=== PATIENT | female | born 1935 | race Caucasian/White ===

== ENCOUNTER 2024-03-06 14:54 | Inpatient (IN) | payer MEDICARE, SELFPAY ==
[2024-03-06] VITALS (8 sets, daily range): BP systolic 105–148; BP diastolic 59–89
--- NOTE | 2024-03-06 13:14 | ED.GENMED ---
History of Present Illness
General
Chief Complaint: Cardiac Symptoms
Source: patient, records and family
Exam Limitations: none
Time Seen by Provider: 03/06/24 12:48
Nursing documentation reviewed up to this point in time: agreed with
Travel History
Have you had any contact with someone who has COVID-19?: No
Do you have any symptoms of coronavirus? Fever > 100 degrees, chills, cough, shortness of breath, sore throat, loss of taste or smell, muscle aches, or headache?: No
History of Present Illness
History of Present Illness:
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 Patient
was 25 to 30% and it was up to 50% on her last echo. Patient does admit to fatigue over the past couple weeks. Patient is chronically short of breath and has chronic swelling in her ankles. Patient denies chest pain. Patient denies any GI or
symptoms. Patient denies chest pain. Patient denies any orthopnea. Patient does have a history of nonobstructive coronary artery disease and has had an NJ in the past.
Past History
Past History
ED Past Medical History: Arrthythmia, CHF, HTN, NJ and Other (Hemorrhoids, frequent urination, arthritis, impaired vision, cardiomyopathy, out of hospital cardiac arrest)
ED Past Surgical History: Cardiac (Cardiac defibrillator placed status post cardiac arrest) and Gynecological (Hysterectomy)
Social History
Tobacco: Non-smoker
Alcohol: Occasional
Drug: None
Personal:
Living: with family
Employment: Retired
Review of Systems
Review of Systems
All Other Systems: ROS reviewed and negative except as documented in HPI and ROS
Constitutional: Reports fatigue; Denies fever or chills
EENT: Reports no symptoms
Respiratory: Reports trouble breathing; Denies cough
Cardiac: Denies chest pain, diaphoresis or palpitations
ABD/GI: Reports no symptoms
: Reports no symptoms
Musculoskeletal: Reports edema
Skin: Reports no symptoms
Neurological: Reports no symptoms
Hematologic/Lymphatic: Reports no symptoms
Phy Exam
Physical Exam
Physical Exam:
Physical Exam
General: No apparent distress, alert and appropriate, well nourished, well hydrated
HENT: Normocephalic, supple with no lymphadenopathy, no thyromegaly
Eyes: Clear sclera, conjuctiva without injection
Heart: irregular rhythm and normal rate. No S3, S4. No murmur. No NVD
Lungs: No respiratory distress, no stridor, lung sounds clear and equal bilaterally
Abdomen: Soft, nontender, no organomegaly, BS good
Neuro: Alert and oriented x 3, CN II - XII intact, no motor focality
Skin: no rash
Psychiatric: well kept. interactive and cooperative
Extremities: No cyanosis, tenderness. +1-2 pitting edema bilaterally of the ankles, feet and lower legs
Course
Orders/Labs/Results
Orders:
Orders
03/06/24 12:10
ECG [Electrocardiogram (*1)] Urgent
Reason for Study: Atrial Fibrillation
03/06/24 12:11
EKG- Treatment ONCE
03/06/24 13:06
Complete Blood Count/With Diff Urgent
Comprehensive Metabolic Panel Urgent
NT-proBNP Urgent
Prothrombin Time Urgent
TSH Reflex To Free T4 Urgent
Troponin I Urgent
Vital Signs
Initial and Last Documented VS:
Initial Vital Signs
Temp Pulse Resp BP Pulse Ox
98.1 F 93 18 148/89 95
03/06/24 12:06 03/06/24 12:06 03/06/24 12:06 03/06/24 12:06 03/06/24 12:06
Last Documented Vital Signs
Temp Pulse Resp BP Pulse Ox
98.1 F 93 18 148/89 95
03/06/24 12:06 03/06/24 12:06 03/06/24 12:06 03/06/24 12:06 03/06/24 12:06
*Pulse Oximetry
Patient hypoxic: no
*EKG
Interpreted by ED Provider?: Yes
EKG Intrepretation Date: 03/06/24
EKG Intrepretation Time: 13:19
Interpretation: abnormal
Comparison EKG: changes noted
Heart Rate: 81
Rate: normal
Rhythm: a-fib, PVC's and av sequential
[place]: left axis deviation
Interval: normal QT interval
QRS Pattern: left vent hypertrophy
Ischemia: non-specific ST changes
*Plant Engineering Manager Interpretation
Rate: normal
Interpretation: abnormal
Heart Rate: 80
Rhythm: a-fib and av sequential
*Critical Care Note
Total Time (30-74mins, 75-104mins- exclusive of procedures): Not Applicable
ED Attending Note
-
Portions of this chart may have been created with voice recognition software.� Occasional wrong word or��sound alike� substitutions may have occurred due to the inherent limitations of voice recognition software.
Discharge Plan
Departure
Patient Disposition: Admit
Date of Disposition: 03/06/24
Time of Disposition: 13:20
Admit to: Telemetry
Admit to doctor: Hospitalist
Presentation/result/management discussed w/ accepting MD/DO: Cardiology
Patient with high blood pressure during this ER visit?: Yes
Condition: Fair
Covid-19: Not Applicable
Discharge Problem:
Acute congestive heart failure, Atrial fibrillation with controlled ventricular rate
Prescriptions:
No Action
atenolol 50 MG tablet
75 mg PO HS
cholecalciferol (vitamin D3) 1,000 UNITS tablet
1,000 units PO DAILY@1700
biotin 10,000 MCG capsule
10,000 mcg PO HS
losartan 25 MG tablet
25 mg PO HS
doxycycline hyclate 100 MG capsule
100 mg PO Q12 Qty: 3 0RF
furosemide 20 MG tablet
20 mg PO DAILY Qty: 30 0RF
fluticasone propionate 1 SPRAY spray,suspension
2 spray intranasal DAILY Qty: 1 0RF
prednisone 10 MG tablet
10 mg PO .TAPER Qty: 30 0RF
Rx Instructions:
Take 40mg daily x3days, 30mg daily x3days,
20mg daily x3days, 10mg daily x3days.
warfarin [Jantoven] 5 MG tablet
7.5 mg PO SUTUTHSA Qty: 0 0RF
Rx Instructions:
please hold until INR is taken Monday 12/11
warfarin [Jantoven] 5 MG tablet
5 mg PO MOWEFR Qty: 0 0RF
Rx Instructions:
please hold until INR is taken Monday 12/11
Discharge Date and Time
Print Language: INDONESIAN
[2024-03-06 13:31] LABS: % Basophils 0.8 % (0-2); % Eosinophils 0.2 % (0-6); % Immature Granulocytes 0.2 % (0-0.5); % Lymphocytes 23.4 % (20.5-51.1); % Monocytes 11.4 % (1.7-9.3); Absolute Lymphocytes 1.2 10^3/uL (1.2-3.4); Absolute Monocytes 0.6 10^3/uL (0.1-0.6); Absolute Neutrophils 3.2 10^3/uL (1.4-6.5); Hematocrit 42.3 % (37.0-47.0); Hemoglobin 14.6 g/dL (12.0-16.0); Mean Corp Hgb Conc. 34.5 g/dL (33.0-37.0); Mean Corpuscular Hgb 30.2 pg (27.0-31.0); Mean Corpuscular Volume 87.6 fL (81.0-99.0); Mean Platelet Volume 10.3 fL (7.4-10.4); Nucleated Red Blood Cells % 0 %; Platelet Count 177 10^3/uL (130-400); Red Blood Cell Count 4.83 10^6/uL (4.20-5.40)
[2024-03-06 13:56] LABS: INR 2.11; PT 23.8 Sec (11.4-14.6)
[2024-03-06 13:57] LABS: NT-proBNP 7620 pg/ml; Troponin I < 0.012 ng/ml
[2024-03-06 13:58] LABS: ALT (SGPT) 20 U/L (0-35); AST (SGOT) 36 U/L (14-36); Albumin 4.2 g/dl (3.5-5.0); Alkaline Phosphatase 98 U/L (38-126); Blood Urea Nitrogen 23 mg/dl (7-17); Calcium 9.2 mg/dl (8.4-10.2); Carbon Dioxide 29 mmol/L (22-30); Chloride 105 mmol/L (98-107); Glucose 89 mg/dl (70-99); Potassium 3.6 mmol/L (3.5-5.1); Sodium 142 mmol/L (135-145); Total Bilirubin 1.1 mg/dl (0.2-1.3); Total Protein 6.5 g/dl (6.3-8.2); eGFR > 60.00
--- NOTE | 2024-03-06 14:13 | HPS.HSE ---
Family Physician
-
Family Physician: NO INTERVIEW UNKNOWN
Chief Complaint
-
feeling tired
History of Present Illness
88-year-old female with extensive past medical cardiac history who is presenting from cardiology office where was found that she had low ejection fraction. Patient states of complaining and feeling fatigued for the past couple weeks. States she
walks couple of blocks and started feeling weak and has to slow down. Denies chest pain. States of chronic shortness of breath. 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 States of losing weight which she
seems multifactorial due to not appetizing food at long term. Denies any orthopnea or PND. Denies any fevers or chills. Otherwise patient is in pleasant mood and states she feels fine. Patient was seen by Dr. Baez and was recommended
come into the hospital and echocardiogram as outpatient with reduction in ejection fraction and valvular insufficiency. Also patient has 3 months of battery life left on ICD battery needs to be probably exchanged and cardiac cath and TAMIE/CV.
Medical History
Past Medical History
Past Medical History: Reports Other
Additional Past Medical History:
Persistent atrial fibrillation
Chronic HFrEF
Nonrheumatic mitral valve insufficiency
Hyperlipidemia
Antiphospholipid antibody positive
History of PE
Hyperlipidemia
Cardiac status post ICD
Ventricular tachycardia status post ICD
Past Surgical History: Reports Cardiac (ICD )
Social History
Tobacco: Non-smoker
Alcohol: Occasional (mimosa x 1 qweekly)
Drug: None
Living: Assisted Living
Family History
Family History: Not pertinent
Allergies / Home Medications
Allergies reflects when Allergies were last updated in [employer].
Home Medications with original date entered in [employer]
Allergy/Medication List:
Allergies
Allergy/AdvReac Type Severity Reaction Status Date / Time
carvedilol [From Coreg] Allergy mental Verified 12/04/17 17:47
changes/memory
problems/fogginess;
PT DENIES
codeine Allergy lost Verified 12/04/17 17:47
hearing x
3 days
erythromycin base Allergy passed out Verified 12/04/17 17:47
metoprolol Allergy couldnt Verified 12/04/17 17:47
remember
her name;
PT DENIES
rosuvastatin Allergy Unknown Verified 12/04/17 17:47
Home Medications
atenolol 50 mg tablet 50 mg PO DAILY 01/27/15
cholecalciferol (vitamin D3) 25 mcg (1,000 unit) tablet 1,000 units PO DAILY 01/27/15
biotin 10,000 mcg capsule 10,000 mcg PO DAILY 12/04/17
losartan 25 mg tablet 25 mg PO DAILY 12/04/17
amiodarone 100 mg tablet 50 mg PO DAILY 03/06/24
atorvastatin 10 mg tablet (Lipitor) 10 mg PO DAILY 03/06/24
furosemide 20 mg tablet 80 mg PO DAILY 03/06/24
vitamin B complex 1 tab PO DAILY 03/06/24
warfarin 5 mg tablet (Jantoven) 2.5 mg PO QPM 03/06/24
Review of Systems
-
History Source: Patient and Family
A 12 point ROS was completed and negative except as noted: Yes
Physical Exam
Vital Signs
Vital Signs
Temp Pulse Resp BP Pulse Ox
98.1 F 93 18 148/89 95
03/06/24 12:06 03/06/24 12:06 03/06/24 12:06 03/06/24 12:06 03/06/24 12:06
Physical Exam
General: Well Developed, Well Nourished and No Apparent Distress
HEENT: NormoCephalic, Moist mucous membranes and Atraumatic
Respiratory: Clear
Cardiac: S1/S2 and Murmur; No Rub
GI: Soft, Non Tender, Non Distended and Normal Bowel Sounds; No Organomegaly
Rectal: Deferred by Provider
Musculoskeletal: No Clubbing, No Cyanosis, Edema, Left Lower Extremity and Edema, Right Lower Extremity
Skin: No Rash
Neuro: Awake, AO x 3, No Motor Deficits and Nonfocal/grossly intact
Psych: Calm
Laboratory Results
-
03/06/24 13:25
03/06/24 13:25
Laboratory Results
Total Bilirubin 1.1 mg/dl (0.2-1.3) 03/06/24 13:25
AST 36 U/L (14-36) 03/06/24 13:25
ALT 20 U/L (0-35) 03/06/24 13:25
Alkaline Phosphatase 98 U/L (38-126) 03/06/24 13:25
Troponin I < 0.012 ng/ml 03/06/24 13:25
Impression/Plan
-
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
#Valvular disease with moderate to severe mitral regurgitation and moderate tricuspid regurgitation
Start patient on 40 mg of IV Lasix
Strict I's and O's with daily weights.
Monitor creatinine aggressive diuresis
Start patient on goal-directed medical therapy per cardiology at sensitive to multiple medications
May need to hold Coumadin if plan for cardiac catheterization.
Cardiology consultation
#Ventricular tachycardia status post ICD implantation
Currently on low-dose of amiodarone 50 mg p.o. daily
Monitor on telemetry. Monitor electrolytes
ICD interrogation ?
Per patient battery on the left for 3 months-? Exchange per cardiology
#Paroxysmal atrial fibrillation now persistent
#Chronic coagulopathy with Coumadin
INR pending
Continue amiodarone
TSH pending
Consider switching atenolol to carvedilol
Hyperlipidemia
Continue low-dose Lipitor
Check lipids in am
History of PE
History of DVT
Continue Coumadin
DVT ppx-coumadin/scds
d/w with son at bedside in details
Full code
[2024-03-06 14:30] LABS: TSH Reflex To Free T4 < 0.02 uIU/ml (0.47-4.68)
--- NOTE | 2024-03-06 15:08 | W.PN.CARDCBS ---
Addendum entered and electronically signed by Jeannine Tovar MD 03/06/24 16:28:
I saw and examined the patient.
The Workforce Management Consultant's note was reviewed and I agree with the note.
Comment: I saw the patient in the office today and given that she lives quite a ways away she also had echocardiogram which showed significant decline in ejection fraction. She was accompanied by her son and ultimately decision was made for her to
be admitted.Please refer to office note.
She is quite complicated. She is volume overloaded. Today in the office she remains in persistent atrial fibrillation. Last office visit A-fib recurrence was noted and she was asymptomatic and wished to be conservative. Atrial fibrillation has been
persistent for approximately 16 months and she has been on low-dose amiodarone (Dual purpose) and warfarin.
She underwent echocardiogram today and ejection fraction which had previously recovered and had been stable 45 to 55% over the recent years declined to 25 to 32% with concomitant moderate to severe mitral regurgitation (previously moderate). In
addition cannot be sure that she does not have New apical and distal septal hypokinesis on echo. She does have history of nonobstructive coronary disease with 40% LAD disease in 2007/2008.
She is volume overloaded. She has not been on usual guideline directed medical therapy given her ejection fraction had recovered and she is intolerant to many medications. I discussed this all at length with her son and the patient. After we
discussed at great length treatment and evaluation options Plan at this time:
-Would maximize heart failure with reduced ejection fraction status.
-Given decline in ejection fraction and possible wall motion abnormality with prior nonobstructive coronary disease many years ago patient is agreeable to cardiac catheterization. Await INR less than 1.4 or when interventional cardiology
feels comfortable. Would bridge with heparin. Risks and benefits discussed with the patient and her son.
-Plan for TAMIE cardioversion then this hospital stay. Try to restore sinus rhythm. Anticoagulation should continue. Increase amiodarone from 100 mg daily to 200 mg twice daily. Check thyroid function test.
-Mitral regurgitation which was moderate is now moderate to severe. Reassess during TAMIE this may be in part related to atrial fibrillation decompensated heart failure.
-Likely should undergo biventricular ICD generator change during this hospital stay given history of ventricular tachycardia, history of sudden cardiac and 3 months of battery life.
-She at this time is willing to undergo guideline directed medical therapy. In the past she absolutely did not tolerate Toprol-XL. She is willing to retry carvedilol 3.[address] of atenolol.
-She is willing to try Entresto 24/[address] daily in place of losartan. (Will need to check into cost)
-She is willing to start Aldactone 25 mg daily with follow-up labs.
-Diuresis with IV Lasix
-Follow input/output/daily weights.
-Heart failure education heart failure nutrition education
-Check thyroid function testing given history of thyroid disease.
-Curbside hematology to ask with her antiphospholipid lipid antibody syndrome and history of DVT/PE in the distant past as to whether this patient may proceed to switch from Coumadin to Eliquis. Her INR s lately have been fluctuating.
-Reassess lipids
-Blood pressure has been stable
-No further significant ventricular tachycardia on amiodarone. Amiodarone is being used for dual purpose.��
Original Note:
Today's Communication / Plan
-
-Will diurese with Lasix 40 mg IV BID.
-Patient agreeable to transition from outpatient dose of atenolol to Coreg 3.125 mg BID. Patient was previously intolerant to Toprol XL.
-Patient agreeable to transition from outpatient dose of losartan to Entresto 24/26 mg BID.
-Patient agreeable to start spironolactone 25 mg daily. Will follow BMP.
-Patient is agreeable to cardiac catheterization. Last cardiac cath was in 2007 and patient had a 40% prox LAD lesion at that time.
-INR is 2.11 in the ER. Will hold warfarin dose on 03/06/24. Will tentatively add to cath schedule for 03/07/24.
-Pending results of cath will attempt to restore to SR this admission with TAMIE/CV. Patient has been in persistent Afib for 16 months.
-Will increase amiodarone to 200 mg daily.
-Will ask Heme/Onc to see patient and help determine if patient can transition from warfarin to Eliquis. Patient has been on warfarin since PE in 2014. Patient saw Heme/Onc in 2014 and was positive for anticardiolipin IgM antibody. Consult placed
and TT to Heme attending on 03/06/24.
-Will start Heparin gtt once INR is less than 2.
-[employer] ICD is in place and device check in office 03/06/24 indicates 3 months of battery life. Patient will need generator change prior to discharge.
-Likely schedule of events is cath, then generator change then TAMIE/CV. Will diurese in the meantime.
Impression / Plan
-
PCP: Unknown
Cardiology: Dr. Jeannine Tovar
Heme/Onc: Dr. Starr
Impression:
Acute on chronic HFrEF
Recurrent cardiomyopathy, EF 32% by Rachel's method and 25-30% visually on echo 03/06/24
EF previously as low as 30% by echo 10/17/19 and then improved to 50% by echo 12/16/22
Persistent Afib
Chronic amiodarone therapy
Chronic warfarin OAC managed by [facility]
Nonobstructive CAD including 40% proximal LAD lesion by cath 07/07/08
h/o cardiac arrest 02/2009
s/p [employer] ICD, s/p generator change 05/30/13
h/o NSVT
Anti-cardiolipin antibody syndrome
positive for anti-cardiolipin antibody IgM
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
Echo 02/2009: EF 35-40%
Echo 05/23/13: EF 40%
Echo 01/28/15: EF 40-45%
Echo 06/02/15: EF 55-60%
Echo 11/23/15: EF 55-60%
Echo 03/2017: EF 50-55%, mod MR, PASP 35-40mmHg
Echo 01/01/18: EF 45%
Echo 10/17/19: EF 30-35% with global hypokinesis
Echo 12/14/20: EF 50-55%
Echo 12/16/22: EF 50%, mod MR, mod TR with PAP 52 mmHg
Echo 03/06/24: EF 25 to 30% visually, 32% by Rachel's method, endocardial definition is limited, but in some views apex, distal septum appear hypokinetic, mild concentric LVH, moderate to severe MR, no aortic regurgitation, moderate TR with PAP 46
mmHg
Plan:
-Patient was seen for a regularly scheduled echo and office visit today and was noted to have CM and acute HF, she was referred to [facility] and cardiology is now consulted. Patient has a h/o CM as far back as 2007, she had cardiac cath at that time and
she had a 40% proximal LAD lesion, but no other significantly obstructive CAD. Patient then had cardiac arrest in 02/2009 and had an ICD placed at that time. Patient found to have Afib on device check and also has a h/o ICD shocks for unclear
reasons. She is chronically on amiodarone 50 mg daily and warfarin. Patient has been taking warfarin since the PE in [address] Starr at that time and tested positive for anticardiolipin IgM antibody. Patient has had EF up and down since
then. Patient has not wanted to switch from atenolol to Coreg or Toprol XL in the past. Patient has been agreeable to losartan though. Patient appeared to be in acute HF in the office today and on echo her EF was down to 25% visually. Patient was
referred to [facility].
-Patient with acute HFrEF. EF 25% by echo 03/06/24. pro-BNP 7620.
-Will diurese with Lasix 40 mg IV BID.
-Patient agreeable to transition from outpatient dose of atenolol to Coreg 3.125 mg BID. Patient was previously intolerant to Toprol XL.
-Patient agreeable to transition from outpatient dose of losartan to Entresto 24/26 mg BID.
-Patient agreeable to start spironolactone 25 mg daily. Will follow BMP.
-TSH low at less than 0.02, but free T4 is normal at 2.14.
-Patient is agreeable to cardiac catheterization. Last cardiac cath was in 2007 and patient had a 40% prox LAD lesion at that time.
-INR is 2.11 in the ER. Will hold warfarin dose on 03/06/24. Will tentatively add to cath schedule for 03/07/24.
-Pending results of cath will attempt to restore to SR this admission with TAMIE/CV. Patient has been in persistent Afib for 16 months.
-Will increase amiodarone to 200 mg daily.
-Will ask Heme/Onc to see patient and help determine if patient can transition from warfarin to Eliquis. Patient has been on warfarin since PE in 2014. Patient saw Heme/Onc in 2014 and was positive for anticardiolipin IgM antibody. Consult placed
and TT to Heme attending on 03/06/24.
-Will start Heparin gtt once INR is less than 2.
-[employer] ICD is in place and device check in office 03/06/24 indicates 3 months of battery life. Patient will need generator change prior to discharge.
-Likely schedule of events is cath, then generator change then TAMIE/CV. Will diurese in the meantime.
Progress Note - [employer]
Subjective
Date of Service: March 06, 2024
She denies SOB laying in bed
Objective
Labs:
03/06/24 13:25
03/06/24 13:25
Labs
Hgb 14.6 g/dL (12.0-16.0) 03/06/24 13:25
Hct 42.3 % (37.0-47.0) 03/06/24 13:25
Plt Count 177 10^3/uL (130-400) 03/06/24 13:25
PT 23.8 Sec (11.4-14.6) H 03/06/24 13:25
INR 2.11 03/06/24 13:25
Sodium 142 mmol/L (135-145) 03/06/24 13:25
Potassium 3.6 mmol/L (3.5-5.1) 03/06/24 13:25
BUN 23 mg/dl (7-17) H 03/06/24 13:25
Creatinine 0.9 mg/dL (0.6-1.0) 03/06/24 13:25
Glucose 89 mg/dl (70-99) 03/06/24 13:25
Troponins
03/06/24
13:25
Troponin I < 0.012
Vital Signs and I&O:
Vital Signs
Temp Pulse Resp BP Pulse Ox
98.1 F 93 18 148/89 95
03/06/24 12:06 03/06/24 12:06 03/06/24 12:06 03/06/24 12:06 03/06/24 12:06
Vital Signs
Temp Pulse Resp BP Pulse Ox
98.1 F 93 18 148/89 95
03/06/24 12:06 03/06/24 12:06 03/06/24 12:06 03/06/24 12:06 03/06/24 12:06
Physical Exam
Physical Exam
GEN: No distress, awake, alert and oriented x3
HEENT: EOMI, MMM
LUNGS:CTA B/L without wheeze or rales
CV: Irreg irreg, 3/6 BSM
ABD: soft, BS+, NT, ND
EXT: +1 B/L LE edema
NEURO: Gross non-focal
SKIN: Warm, dry and pink. No rash
[2024-03-06 15:15] LABS: Free T4 2.14 ng/dl (0.78-2.19)
[2024-03-06] MEDS: PACERONE 100 MG PO (17:12)
[2024-03-06] MEDS: LASIX 40 MG IV (17:12)
[2024-03-06] MEDS: ENTRESTO 24 MG/26 MG 1 TAB PO (19:55)
[2024-03-06] MEDS: COREG 3.125 MG PO (19:55)
[2024-03-07 03:02] VITALS: BP 107/57
[2024-03-07 06:14] LABS: PT 27.3 Sec (11.4-14.6)
[2024-03-07 06:33] LABS: Blood Urea Nitrogen 22 mg/dl (7-17); Calcium 8.5 mg/dl (8.4-10.2); Carbon Dioxide 31 mmol/L (22-30); Chloride 105 mmol/L (98-107); Glucose 86 mg/dl (70-99); Potassium 3.4 mmol/L (3.5-5.1); Sodium 142 mmol/L (135-145); eGFR 54.53
[2024-03-07 07:55] VITALS: BP 117/64
[2024-03-07] MEDS: VITAMIN D3 (cholecalciferol) 25 MCG PO (08:18)
[2024-03-07] MEDS: LIPITOR 10 MG PO (08:18)
[2024-03-07] MEDS: ENTRESTO 24 MG/26 MG 1 TAB PO (08:18)
[2024-03-07] MEDS: COREG 3.125 MG PO (08:19)
[2024-03-07] MEDS: PACERONE 200 MG PO (08:19)
[2024-03-07] MEDS: B COMPLEX w/VITAMIN C 1 CAPLET PO (08:19)
[2024-03-07] MEDS: ALDACTONE 25 MG PO (08:19)
[2024-03-07] MEDS: LASIX 40 MG IV ×2 (08:20→16:53)
[2024-03-07] MEDS: KCL 20 MEQ PO ×2 (08:25→16:54)
--- NOTE | 2024-03-07 10:43 | CON.ONC ---
Impression
Impression
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
Previous DVT pulmonary embolus 2014
Decompensated congestive heart failure
Plan
Plan
Would be reluctant to recommend alternate to warfarin with a history of persistent antiphospholipid antibody
IgM titers were in the intermediate level at 50 on the second evaluation 12 weeks after the first positive
Continue with goal INR greater than 2.0
Patient History
History of Present Illness
88-year-old female with extensive past medical cardiac history who is presenting from cardiology office where was found that she had low ejection fraction. Patient states of complaining and feeling fatigued for the past couple weeks. States she
walks couple of blocks and started feeling weak and has to slow down. Denies chest pain. States of chronic shortness of breath. Denies any orthopnea,PND, fevers or chills. Otherwise patient is in pleasant mood and states she feels fine. Patient
was seen by Dr. Baez and was recommended come into the hospital and echocardiogram as outpatient with reduction in ejection fraction and valvular insufficiency. Also patient has 3 months of battery life left on ICD battery needs to be
probably exchanged and cardiac cath and TAMIE/CV.
Past-Medical/Surgical History
Past Medical History
Persistent atrial fibrillation
Chronic HFrEF
Nonrheumatic mitral valve insufficiency
Hyperlipidemia
Antiphospholipid antibody positive
History of PE
Hyperlipidemia
Cardiac status post ICD
Ventricular tachycardia status post ICD
Past Surgical History
Cardiac (ICD )
Social History
Tobacco: Non-smoker
Alcohol: Occasional (mimosa x 1 qweekly)
Drug: None
Living: Assisted Living
Family History
Family History: Not pertinent
Patient Medication
�Medication �Instructions �Recorded �Confirmed �Last Taken �Type
atenolol 50 mg tablet 50 mg PO DAILY Blood Pressure 01/27/15 03/06/24 03/05/24 History
cholecalciferol (vitamin D3) 25 1,000 units PO DAILY Supplement 01/27/15 03/06/24 03/05/24 History
mcg (1,000 unit) tablet
biotin 10,000 mcg capsule 10,000 mcg PO DAILY Supplement 12/04/17 03/06/24 03/05/24 History
losartan 25 mg tablet 25 mg PO DAILY Blood Pressure 12/04/17 03/06/24 03/05/24 History
amiodarone 100 mg tablet 50 mg PO DAILY Arrhythmia 03/06/24 03/06/24 03/05/24 History
atorvastatin 10 mg tablet (Lipitor) 10 mg PO DAILY High Cholesterol 03/06/24 03/06/24 03/05/24 History
furosemide 20 mg tablet 80 mg PO DAILY Fluid 03/06/24 03/06/24 03/05/24 History
Retention/Swelling
vitamin B complex 1 tab PO DAILY Supplement 03/06/24 03/06/24 Unknown History
warfarin 5 mg tablet (Jantoven) 2.5 mg PO QPM Blood Clot 03/06/24 03/06/24 03/05/24 History
Prevention/Tx
Active Medications
Generic Name Dose Route Start Last Admin
Trade Name Freq PRN Reason Stop Dose Admin
Amiodarone HCl 200 mg 03/07/24 08:00 03/07/24 08:19
Amiodarone 200 Mg Tablet PO 04/04/24 07:59 200 mg
DAILY ZANDER Administration
Atorvastatin Calcium 10 mg 03/07/24 08:00 03/07/24 08:18
Atorvastatin (Lipitor) 10 Mg Tablet PO 04/04/24 07:59 10 mg
DAILY ZANDER Administration
Carvedilol 3.125 mg 03/06/24 20:00 03/07/24 08:19
Carvedilol 3.125 Mg Tablet PO 04/03/24 19:59 3.125 mg
BID ZANDER Administration
Cholecalciferol 25 mcg 03/07/24 08:00 03/07/24 08:18
Cholecalciferol (Vitamin D3) 25 Mcg Tablet (1,000 Units) PO 04/04/24 07:59 25 mcg
DAILY ZANDER Administration
Furosemide 40 mg 03/07/24 08:00 03/07/24 08:20
Furosemide 40 Mg (10 Mg/Ml) 4 Ml Vial IV 04/04/24 07:59 40 mg
BID AT 0800,1600 ZANDER Administration
Potassium Chloride 20 meq 03/07/24 16:00
Potassium Chloride 20 Meq Extended Release Tablet PO 04/04/24 15:59
0800,1600 ZANDER
Sacubitril/Valsartan 1 tab 03/06/24 20:00 03/07/24 08:18
Sacubitril 24 Mg/Valsartan 26 Mg (Entresto) Tab PO 04/03/24 19:59 1 tab
BID ZANDER Administration
Sodium Chloride 0 flush 03/06/24 17:00
Sodium Chloride 0.9% (Flush) Syringe IV 04/03/24 16:59
PER PROTOCOL ZANDER
Spironolactone 25 mg 03/07/24 08:00 03/07/24 08:19
Spironolactone 25 Mg Tablet PO 04/04/24 07:59 25 mg
DAILY ZANDER Administration
Vitamin B Complex/Vitamin C 1 caplet 03/07/24 08:00 03/07/24 08:19
Vitamin B Complex With Vitamin C Caplet PO 04/04/24 07:59 1 caplet
DAILY ZANDER Administration
Review of Systems
-
12 point review of systems fails to elicit additional complaints other than those reviewed in the HPI.
Physical Exam
-
Physical Exam
General: Well Developed, Well Nourished and No Apparent Distress
HEENT: NormoCephalic, Moist mucous membranes and Atraumatic
Respiratory: Clear
Cardiac: S1/S2 and Murmur; No Rub
GI: Soft, Non Tender, Non Distended and Normal Bowel Sounds; No Organomegaly
Rectal: Deferred by Provider
Musculoskeletal: No Clubbing, No Cyanosis, Edema, Left Lower Extremity and Edema, Right Lower Extremity
Skin: No Rash
Neuro: Awake, AO x 3, No Motor Deficits and Nonfocal/grossly intact
Psych: Calm
Labs
Lab Results
WBC 5.0 10^3/uL (4.8-10.8) 03/06/24 13:25
RBC 4.83 10^6/uL (4.20-5.40) 03/06/24 13:25
Hgb 14.6 g/dL (12.0-16.0) 03/06/24 13:25
Hct 42.3 % (37.0-47.0) 03/06/24 13:25
MCV 87.6 fL (81.0-99.0) 03/06/24 13:25
MCH 30.2 pg (27.0-31.0) 03/06/24 13:25
MCHC 34.5 g/dL (33.0-37.0) 03/06/24 13:25
RDW 15.0 % (11.5-14.5) H 03/06/24 13:25
Plt Count 177 10^3/uL (130-400) 03/06/24 13:25
MPV 10.3 fL (7.4-10.4) 03/06/24 13:25
Abs Immat Gran (auto) 0.0 10^3/uL (0-0.05) 03/06/24 13:25
Absolute Neuts (auto) 3.2 10^3/uL (1.4-6.5) 03/06/24 13:25
Absolute Lymphs (auto) 1.2 10^3/uL (1.2-3.4) 03/06/24 13:25
Absolute Monos (auto) 0.6 10^3/uL (0.1-0.6) 03/06/24 13:25
Absolute Eos (auto) 0.0 10^3/uL (0-0.7) 03/06/24 13:25
Absolute Basos (auto) 0.0 10^3/uL (0-0.2) 03/06/24 13:25
Immature Gran % 0.2 % (0-0.5) 03/06/24 13:25
Neutrophils % 64.0 % (42.2-75.2) 03/06/24 13:25
Lymphocytes % 23.4 % (20.5-51.1) 03/06/24 13:25
Monocytes % 11.4 % (1.7-9.3) H 03/06/24 13:25
Eosinophils % 0.2 % (0-6) 03/06/24 13:25
Basophils % 0.8 % (0-2) 03/06/24 13:25
Creatinine 1.0 mg/dL (0.6-1.0) 03/07/24 05:31
Vital Signs
Vital Signs
Temp Pulse Resp BP Pulse Ox
97.6 F 73 18 117/64 95
03/07/24 07:55 03/07/24 07:55 03/07/24 07:55 03/07/24 08:20 03/07/24 07:55
[2024-03-07 11:53] VITALS: BP 130/88
--- NOTE | 2024-03-07 12:04 | W.PN.HOSP.TC ---
Today's Communication/Plan
-
Trend Cr
hold coumadin
replete kcl
IV lasix
cards recs
Assessment / Plan
Assessment / Plan
General: Well Developed, Well Nourished and No Apparent Distress
HEENT: NormoCephalic, Moist mucous membranes and Atraumatic
Respiratory: Clear
Cardiac: S1/S2 and Murmur; No Rub
GI: Soft, Non Tender, Non Distended and Normal Bowel Sounds; No Organomegaly
Rectal: Deferred by Provider
Musculoskeletal: No Clubbing, No Cyanosis, Edema, Left Lower Extremity and Edema, Right Lower Extremity
Skin: No Rash
Neuro: Awake, AO x 3, No Motor Deficits and Nonfocal/grossly intact
Psych: Calm
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
#Valvular disease with moderate to severe mitral regurgitation and moderate tricuspid regurgitation
Start patient on 40 mg of IV Lasix
Strict I's and O's with daily weights.
Monitor creatinine aggressive diuresis
Start patient on goal-directed medical therapy per cardiology at sensitive to multiple medications
Started on Entresto and Aldactone and low-dose carvedilol
With new onset of reduction in EF-Plan for cardiac cath once INR <2? May need bridging wtih hep gtt.
Monitor Cr as on multiple new meds and IV diuresis
Cardiology consultation
#Ventricular tachycardia status post ICD implantation
Amiodarone dose increased to 200 mg daily
Monitor on telemetry. Monitor electrolytes
ICD interrogation ?
Plan for ICD generator change exchange this admission
#Paroxysmal atrial fibrillation now persistent
#Chronic coagulopathy with Coumadin
INR pending
Continue amiodarone
TAMIE/CV this admit
Consider switching atenolol to carvedilol
Hyperlipidemia
Continue low-dose Lipitor
Check lipids in am
History of PE
History of DVT
History of antiphospholipid antibody syndrome
Continue Coumadin
Oncology correspondence noted-recommend to continue Coumadin
Hypokalemia
replete/monitor.
DVT ppx-coumadin/scds
d/w with son at bedside in details on admission
Full code
d/w with cardiology
Anticipated Discharge: > 48 hours
Subjective/Interval History
-
Date of Service: March 07, 2024
states feeling fine
frustrated due to delay in procedures
Objective Data
-
Labs:
Laboratory Results
03/07/24
05:31
PT 27.3 H
INR 2.50
Sodium 142
Potassium 3.4 L
Chloride 105
Carbon Dioxide 31 H
BUN 22 H
Creatinine 1.0
Glucose 86
Calcium 8.5
Vital Signs:
Vital Signs
Temp Pulse Resp BP Pulse Ox
98.4 F 75 19 130/88 97
03/07/24 11:53 03/07/24 11:53 03/07/24 11:53 03/07/24 11:53 03/07/24 11:53
I&O
03/06/24 03/07/24 03/08/24
06:59 06:59 06:59
Intake Total 480 / 480
Balance 480 / 480
Data Reviewed
-
Total Time Spent with Patient (in minutes): 55
--- NOTE | 2024-03-07 15:31 | W.PN.CARDCBS ---
Addendum entered and electronically signed by Fidelia Reyes MD 03/07/24 15:51:
I saw and examined the patient.
The Ict Teacher's note was reviewed and I agree with the note.
Comment: Patient continues to have shortness of breath. Her lower extremity edema has improved since admission.
INR still elevated at 2.5 this morning. Vital signs and lab work otherwise reviewed and stable. On exam patient is in no acute distress, talks in full sentences, son is at bedside, normal S1 and S2, irregularly irregular heart rhythm, fine
bibasilar Rales, elevated JVD, abdomen is soft, nontender, nondistended with active bowel sounds, warm extremities without significant edema.
Recommendations:
1. Continue to monitor daily INRs. Tentative plan for heart catheterization tomorrow if INR less than 1.8. Will initiate IV unfractionated heparin drip once INR dips below 2
2. Subsequently after heart catheterization she will need a generator change and then tentative plan for TAMIE cardioversion with timing dependent on prior procedures.
3. Continue optimization of goal-directed medical therapy for new cardiomyopathy.
4. Appreciate hematology input with plan to continue Coumadin eventually.
Fidelia Reyes MD, [facility], [facility]
Original Note:
Today's Communication / Plan
-
Recheck INR in AM
Cath once INR less than 1.8, then generator change then TAMIE/CV
Cannot switch to DOAC due to anticardiolipin antibody positive
Impression / Plan
-
PCP: Unknown
Cardiology: Dr. Jeannine Tovar
Heme/Onc: Dr. Starr
Impression:
Acute on chronic HFrEF
Recurrent cardiomyopathy, EF 32% by Rachel's method and 25-30% visually on echo 03/06/24
EF previously as low as 30% by echo 10/17/19 and then improved to 50% by echo 12/16/22
Persistent Afib
Chronic amiodarone therapy
Chronic warfarin OAC managed by [facility]
Nonobstructive CAD including 40% proximal LAD lesion by cath 07/07/08
h/o cardiac arrest 02/2009
s/p [employer] ICD, s/p generator change 05/30/13
h/o NSVT
Anti-cardiolipin antibody syndrome
positive for anti-cardiolipin antibody IgM
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
Echo 02/2009: EF 35-40%
Echo 05/23/13: EF 40%
Echo 01/28/15: EF 40-45%
Echo 06/02/15: EF 55-60%
Echo 11/23/15: EF 55-60%
Echo 03/2017: EF 50-55%, mod MR, PASP 35-40mmHg
Echo 01/01/18: EF 45%
Echo 10/17/19: EF 30-35% with global hypokinesis
Echo 12/14/20: EF 50-55%
Echo 12/16/22: EF 50%, mod MR, mod TR with PAP 52 mmHg
Echo 03/06/24: EF 25 to 30% visually, 32% by Rachel's method, endocardial definition is limited, but in some views apex, distal septum appear hypokinetic, mild concentric LVH, moderate to severe MR, no aortic regurgitation, moderate TR with PAP 46
mmHg
Plan:
-Check CXR, ordered by me 03/07/24.
-Weight is down 3 lbs overnight with Lasix 40 mg IV BID. Patient was taking Lasix 80 mg PO daily prior to admission. LE edema is improved.
-EF down to 25% by echo 03/06/24. EF has been up and down over the years as noted above.
-Plan is for cardiac catheterization once INR is less than 1.8. Last cardiac cath was in 2007 and patient had a 40% prox LAD lesion at that time.
-Explained to patient and later son that INR should be less than 1.8 for elective cardiac cath. Explained that INR was 2.1 on admission and then up to 2.5 on 03/07/24 due to recent increases in outpatient warfarin dosing. INRs have been up and down
as an outpatient. INR was 1.9 on 03/04/24. Encouraged patient to eat dark green vegetables today to help bring down INR, explained that this is a special temporary pass on her usual warfarin dietary restrictions to help get INR down
-Will start Heparin gtt once INR is less than 2.
-Appreciate input from Heme/Onc on 03/07/24. Patient is not a candidate for DOAC due to being positive for anticardiolipin antibody IgM.
-Patient changed from outpatient dose of atenolol to Coreg 3.125 mg BID. Patient was previously intolerant to Toprol XL.
-Patient changed from outpatient dose of losartan to Entresto 24/26 mg BID.
-Patient started on spironolactone 25 mg daily 03/06/24. Will follow BMP.
-TSH low at less than 0.02, but free T4 is normal at 2.14.
-[employer] ICD is in place and device check in office 03/06/24 indicates 3 months of battery life. Patient will need generator change prior to discharge.
-Pending results of cath will attempt to restore to SR this admission with TAMIE/CV. Patient has been in persistent Afib for 16 months.
-Increased dose of amiodarone to 200 mg daily on admission
-Likely schedule of events is cath, then generator change then TAMIE/CV. Will diurese in the meantime.
-57 minutes in face to face time with patient, then back to room to update patient again while her son was present and in chart prep
HPI: Patient was seen for a regularly scheduled echo and office visit today and was noted to have CM and acute HF, she was referred to [facility] and cardiology is now consulted. Patient has a h/o CM as far back as 2007, she had cardiac cath at that time
and she had a 40% proximal LAD lesion, but no other significantly obstructive CAD. Patient then had cardiac arrest in 02/2009 and had an ICD placed at that time. Patient found to have Afib on device check and also has a h/o ICD shocks for unclear
reasons. She is chronically on amiodarone 50 mg daily and warfarin. Patient has been taking warfarin since the PE in [address] Starr at that time and tested positive for anticardiolipin IgM antibody. Patient has had EF up and down since
then. Patient has not wanted to switch from atenolol to Coreg or Toprol XL in the past. Patient has been agreeable to losartan though. Patient appeared to be in acute HF in the office today and on echo her EF was down to 25% visually. Patient was
referred to [facility].
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
Subjective
Date of Service: March 07, 2024
She is upset that her INR is higher
Objective
Labs:
03/06/24 13:25
03/07/24 05:31
Labs
Hgb 14.6 g/dL (12.0-16.0) 03/06/24 13:25
Hct 42.3 % (37.0-47.0) 03/06/24 13:25
Plt Count 177 10^3/uL (130-400) 03/06/24 13:25
PT 27.3 Sec (11.4-14.6) H 03/07/24 05:31
INR 2.50 03/07/24 05:31
Sodium 142 mmol/L (135-145) 03/07/24 05:31
Potassium 3.4 mmol/L (3.5-5.1) L 03/07/24 05:31
BUN 22 mg/dl (7-17) H 03/07/24 05:31
Creatinine 1.0 mg/dL (0.6-1.0) 03/07/24 05:31
Glucose 86 mg/dl (70-99) 03/07/24 05:31
Troponins
03/06/24
13:25
Troponin I < 0.012
Vital Signs and I&O:
Vital Signs
Temp Pulse Resp BP Pulse Ox
98.4 F 75 19 130/88 97
03/07/24 11:53 03/07/24 11:53 03/07/24 11:53 03/07/24 11:53 03/07/24 11:53
Vital Signs
Temp Pulse Resp BP Pulse Ox
98.4 F 75 19 130/88 97
03/07/24 11:53 03/07/24 11:53 03/07/24 11:53 03/07/24 11:53 03/07/24 11:53
Intake & Output
03/05/24 03/06/24 03/07/24 03/08/24
06:59 06:59 06:59 06:59
Intake Total 480 / 480
Balance 480 / 480
Physical Exam
Physical Exam
GEN: AAO x3
HEENT: EOMI, MMM
LUNGS: No audible wheeze
CV: Afib on tele
ABD: ND
EXT: +1 B/L LE edema
NEURO: Gross non-focal
SKIN: No rash
[2024-03-07 15:45] VITALS: BP 116/69
--- NOTE | 2024-03-07 16:28 | CM ---
Met with patient and son at bedside; initial assessment completed
Pharmacy verified: [facility], [address], [place]
Does not have a Family Physician; [facility], [address], [address], [place], [place]; phone # [phone]
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
Patient lives alone in an Apartment @ [facility] ([facility]); elevator access; bathroom has a step in tub w/ hand held shower, shower chair, and grab bar
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
DME: Emergency alert necklace that is only activated when on the premises of [facility]
Transportation: Son will provide ride home
Plan: Discharge to home when medically stable; Will monitor for DC needs
[2024-03-07 19:15] VITALS: BP 97/59
[2024-03-07] MEDS: ENTRESTO 24 MG/26 MG PO (20:35)
[2024-03-07] MEDS: COREG PO (20:35)
--- NOTE | 2024-03-07 20:40 | PTCARENOTE ---
VS: BP 96/67, HR 76, O2 96, and Resp Rate 18. Pt denies SOB, difficulty breathing, and chest pain. AAXO3. Notified MINE Goodwin. Parameters added. Plan of care ongoing.
[2024-03-07 23:25] VITALS: BP 97/60
[2024-03-08 03:20] VITALS: BP 116/66
[2024-03-08 06:59] LABS: INR 1.96; PT 22.6 Sec (11.4-14.6)
[2024-03-08 07:00] VITALS: BP 118/73
[2024-03-08 07:27] LABS: Blood Urea Nitrogen 24 mg/dl (7-17); Calcium 9.3 mg/dl (8.4-10.2); Carbon Dioxide 28 mmol/L (22-30); Chloride 105 mmol/L (98-107); Glucose 91 mg/dl (70-99); HDL Cholesterol 57 mg/dl; LDL Cholesterol, Calculated 86 mg/dl; Potassium 3.7 mmol/L (3.5-5.1); Sodium 140 mmol/L (135-145); Total Cholesterol 154 mg/dl (50-199); Triglyceride 59 mg/dl (10-149); Very Low Density Lipoprotein 11 mg/dl (0-30); eGFR > 60.00
[2024-03-08] MEDS: LIPITOR 10 MG PO (09:22)
[2024-03-08] MEDS: B COMPLEX w/VITAMIN C 1 CAPLET PO (09:22)
[2024-03-08] MEDS: ALDACTONE 25 MG PO (09:23)
[2024-03-08] MEDS: KCL 20 MEQ PO ×2 (09:23→16:39)
[2024-03-08] MEDS: COREG 3.125 MG PO (09:23)
[2024-03-08] MEDS: ENTRESTO 24 MG/26 MG 1 TAB PO (09:23)
[2024-03-08] MEDS: PACERONE 200 MG PO (09:23)
[2024-03-08] MEDS: VITAMIN D3 (cholecalciferol) 25 MCG PO (09:24)
[2024-03-08] MEDS: LASIX 40 MG IV ×2 (09:24→16:48)
[2024-03-08 10:46] LABS: Hematocrit 43.7 % (37.0-47.0); Hemoglobin 14.4 g/dL (12.0-16.0); Mean Corpuscular Hgb 29.6 pg (27.0-31.0); Mean Corpuscular Volume 89.9 fL (81.0-99.0); Mean Platelet Volume 11.1 fL (7.4-10.4); Platelet Count 176 10^3/uL (130-400); Red Blood Cell Count 4.86 10^6/uL (4.20-5.40); Red Cell Dist. Width 15.1 % (11.5-14.5); White Blood Cell Count 4.7 10^3/uL (4.8-10.8)
[2024-03-08 11:00] VITALS: BP 118/69
[2024-03-08 11:32] LABS: APTT 33.9 Sec (23.4-35.0)
--- NOTE | 2024-03-08 11:40 | W.PN.HOSP.TC ---
Today's Communication/Plan
-
Cardiology recs for procedures timing
Start patient on heparin infusion
Continue with IV Lasix
Monitor blood pressure
Assessment / Plan
Assessment / Plan
General: Well Developed, Well Nourished and No Apparent Distress
HEENT: NormoCephalic, Moist mucous membranes and Atraumatic
Respiratory: Clear
Cardiac: S1/S2 and Murmur; No Rub
GI: Soft, Non Tender, Non Distended and Normal Bowel Sounds; No Organomegaly
Musculoskeletal: No Clubbing, No Cyanosis, Edema, Left Lower Extremity and Edema, Right Lower Extremity improving
Skin: No Rash
Neuro: Awake, AO x 3, No Motor Deficits and Nonfocal/grossly intact, poor insight
Psych: Calm
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
#Valvular disease with moderate to severe mitral regurgitation and moderate tricuspid regurgitation
Start patient on 40 mg of IV Lasix. Losing weight
Strict I's and O's with daily weights.
Monitor creatinine aggressive diuresis
Start patient on goal-directed medical therapy per cardiology at sensitive to multiple medications
Started on Entresto and Aldactone and low-dose carvedilol. Due to hypotension Entresto and Aldactone was held overnight.
With new onset of reduction in EF-Plan for cardiac cath-timing to be decided
Monitor Cr as on multiple new meds and IV diuresis
Cardiology consultation
#Ventricular tachycardia status post ICD implantation
Amiodarone dose increased to 200 mg daily
Monitor on telemetry. Monitor electrolytes
ICD interrogation ?
Plan for ICD generator change exchange this admission
#Paroxysmal atrial fibrillation now persistent
#Chronic coagulopathy with Coumadin
INR 1.9. Patient started on heparin infusion.
Continue amiodarone
TAMIE/CV this admit
Consider switching atenolol to carvedilol
Hyperlipidemia
Continue low-dose Lipitor
Check lipids in am
History of PE
History of DVT
History of antiphospholipid antibody syndrome
Start patient on heparin infusion. Restart Coumadin post procedures.
Oncology correspondence noted-recommend to continue Coumadin
Hypokalemia
replete/monitor.
DVT ppx-coumadin/scds
d/w with son at bedside in details on admission
Full code
Patient highly upset due to delay in care. At times seems patient does not understand acuity of situation. Possible poor insight into disease process.
Anticipated Discharge: > 48 hours
Subjective/Interval History
-
Date of Service: March 08, 2024
Interval room air
States of significant urinary output
States improvement in lower extremity edema
Objective Data
-
Labs:
Laboratory Results
03/08/24 03/08/24 03/08/24
06:15 10:27 11:07
WBC 4.7 L
Hgb 14.4
Hct 43.7
Plt Count 176
PT 22.6 H
INR 1.96
APTT Cancelled Cancelled 33.9
Sodium 140
Potassium 3.7
Chloride 105
Carbon Dioxide 28
BUN 24 H
Creatinine 0.9
Glucose 91
Calcium 9.3
Vital Signs:
Vital Signs
Temp Pulse Resp BP Pulse Ox
97.6 F 71 18 118/69 96
03/08/24 11:00 03/08/24 11:00 03/08/24 11:00 03/08/24 11:00 03/08/24 11:00
I&O
03/07/24 03/08/24 03/09/24
06:59 06:59 06:59
Intake Total 480 / 480 450 / 450
Output Total 1650 / 1650
Balance 480 / 480 -1200 / -1200
[2024-03-08] MEDS: HEPARIN 25000 UNITS/250 ML IV (11:55)
--- NOTE | 2024-03-08 12:07 | W.PN.CARDCBS ---
Addendum entered and electronically signed by Trever Fay MD 03/08/24 17:13:
I saw and examined the patient.
The [employer] Barista's note was reviewed and I agree with the note.
Comment:
GEN: No distress, awake, Ox3
HEENT: supple, anicteric, mmm
LUNGS: CTA, no wheezes/rales
CV: Reg, S1/S2, 2/6 syst LSB, no gallop
ABD: soft, BS+, NT/ND
EXT: No edema
NEURO: Gross non-focal
SKIN: No rash
Plan:
Unfortunately INR remains 1.98. Will start IV heparin and plan for cardiac cath on Monday to evaluate new cardiomyopathy.
Continue to hold Coumadin.
Continue Coreg, Entresto, and spironolactone. Will consider adding Jardiance/Farxiga.
Would continue Lasix 40 mg IV twice daily for another 24 hours then switch over to po Lasix.
Original Note:
Today's Communication / Plan
-
Continue diuresis
Start heparin drip as INR <2.
Plan for cath, likely Monday
Impression / Plan
-
PCP: Unknown
Cardiology: Dr. Jeannine Tovar
Heme/Onc: Dr. Starr
Impression:
Acute on chronic HFrEF
Recurrent cardiomyopathy, EF 32% by Rachel's method and 25-30% visually on echo 03/06/24
EF previously as low as 30% by echo 10/17/19 and then improved to 50% by echo 12/16/22
Persistent Afib
Chronic amiodarone therapy
Chronic warfarin OAC managed by [facility]
Nonobstructive CAD including 40% proximal LAD lesion by cath 07/07/08
h/o cardiac arrest 02/2009
s/p [employer] ICD, s/p generator change 05/30/13
h/o NSVT
Anti-cardiolipin antibody syndrome
positive for anti-cardiolipin antibody IgM
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
Echo 02/2009: EF 35-40%
Echo 05/23/13: EF 40%
Echo 01/28/15: EF 40-45%
Echo 06/02/15: EF 55-60%
Echo 11/23/15: EF 55-60%
Echo 03/2017: EF 50-55%, mod MR, PASP 35-40mmHg
Echo 01/01/18: EF 45%
Echo 10/17/19: EF 30-35% with global hypokinesis
Echo 12/14/20: EF 50-55%
Echo 12/16/22: EF 50%, mod MR, mod TR with PAP 52 mmHg
Echo 03/06/24: EF 25 to 30% visually, 32% by Rachel's method, endocardial definition is limited, but in some views apex, distal septum appear hypokinetic, mild concentric LVH, moderate to severe MR, no aortic regurgitation, moderate TR with PAP 46
mmHg
Plan:
-Patient presented from cardiology office after echo showed new CM and there was concern for acute HF.
-Diuresing with IV lasix 40mg BID. Weight down 5lbs this admission, down to 136 lbs 03/08.
-Creat stable at 0.9.
-Chest xray 03/07 with tiny loculated pleural effusion.
-EF down to 25% by echo 03/06/24. EF has been up and down over the years as noted above.
-Given new CM with EF down to 25%, plan is for cardiac catheterization once INR < 1.8, likely Sunday 03/11.
-INR 1.96 03/08, heparin started.
-Last cardiac cath was in 2007 and patient had a 40% prox LAD lesion at that time.
-Appreciate input from Heme/Onc on 03/07/24. Patient is not a candidate for DOAC due to being positive for anticardiolipin antibody IgM.
-Continue Coreg, Entresto, and spironolactone. All new this admission.
-TSH low at less than 0.02, but free T4 is normal at 2.14.
-[employer] ICD is in place and device check in office 03/06/24 indicates 3 months of battery life. Patient will need generator change prior to discharge.
-Pending results of cath will attempt to restore to SR this admission with TAMIE/CV. Patient has been in persistent Afib for 16 months. Amiodarone increased to 200 mg daily on admission
HPI: Patient was seen for a regularly scheduled echo and office visit today and was noted to have CM and acute HF, she was referred to [facility] and cardiology is now consulted. Patient has a h/o CM as far back as 2007, she had cardiac cath at that time
and she had a 40% proximal LAD lesion, but no other significantly obstructive CAD. Patient then had cardiac arrest in 02/2009 and had an ICD placed at that time. Patient found to have Afib on device check and also has a h/o ICD shocks for unclear
reasons. She is chronically on amiodarone 50 mg daily and warfarin. Patient has been taking warfarin since the PE in [address] Starr at that time and tested positive for anticardiolipin IgM antibody. Patient has had EF up and down since
then. Patient has not wanted to switch from atenolol to Coreg or Toprol XL in the past. Patient has been agreeable to losartan though. Patient appeared to be in acute HF in the office today and on echo her EF was down to 25% visually. Patient was
referred to [facility].
Progress Note - Business Continuity Global Director
Subjective
Date of Service: March 08, 2024
Objective
Labs:
03/08/24 06:15
03/08/24 06:15
Labs
Hgb 14.4 g/dL (12.0-16.0) 03/08/24 06:15
Hct 43.7 % (37.0-47.0) 03/08/24 06:15
Plt Count 176 10^3/uL (130-400) 03/08/24 06:15
PT 22.6 Sec (11.4-14.6) H 03/08/24 06:15
INR 1.96 03/08/24 06:15
APTT 33.9 Sec (23.4-35.0) 03/08/24 11:07
Sodium 140 mmol/L (135-145) 03/08/24 06:15
Potassium 3.7 mmol/L (3.5-5.1) 03/08/24 06:15
BUN 24 mg/dl (7-17) H 03/08/24 06:15
Creatinine 0.9 mg/dL (0.6-1.0) 03/08/24 06:15
Glucose 91 mg/dl (70-99) 03/08/24 06:15
Troponins
03/06/24
13:25
Troponin I < 0.012
Vital Signs and I&O:
Vital Signs
Temp Pulse Resp BP Pulse Ox
97.6 F 71 18 118/69 96
03/08/24 11:00 03/08/24 11:00 03/08/24 11:00 03/08/24 11:00 03/08/24 11:00
Vital Signs
Temp Pulse Resp BP Pulse Ox
97.6 F 71 18 118/69 96
03/08/24 11:00 03/08/24 11:00 03/08/24 11:00 03/08/24 11:00 03/08/24 11:00
Intake & Output
03/06/24 03/07/24 03/08/24 03/09/24
06:59 06:59 06:59 06:59
Intake Total 480 / 480 450 / 450
Output Total 1650 / 1650
Balance 480 / 480 -1200 / -1200
[2024-03-08 15:00] VITALS: BP 92/59
--- NOTE | 2024-03-08 15:35 | CM ---
Chart reviewed and plan is to return to home when stable.
Plan; Home when stable.
[2024-03-08 18:39] LABS: APTT 63.3 Sec (23.4-35.0)
[2024-03-08 19:40] VITALS: BP 105/72
[2024-03-08] MEDS: ENTRESTO 24 MG/26 MG PO (20:25)
[2024-03-08] MEDS: COREG PO (20:25)
[2024-03-08 23:35] VITALS: BP 108/76
[2024-03-09] VITALS (7 sets, daily range): BP systolic 90–120; BP diastolic 53–70
[2024-03-09 01:25] LABS: APTT 135.9 Sec (23.4-35.0)
[2024-03-09 06:57] LABS: INR 1.82; PT 20.9 Sec (11.4-14.6)
[2024-03-09 07:11] LABS: Blood Urea Nitrogen 26 mg/dl (7-17); Calcium 9.3 mg/dl (8.4-10.2); Carbon Dioxide 26 mmol/L (22-30); Chloride 105 mmol/L (98-107); Glucose 99 mg/dl (70-99); Potassium 4.2 mmol/L (3.5-5.1); Sodium 141 mmol/L (135-145); eGFR 48.63
[2024-03-09] MEDS: LIPITOR 10 MG PO (09:11)
[2024-03-09] MEDS: ALDACTONE 25 MG PO (09:11)
[2024-03-09] MEDS: ENTRESTO 24 MG/26 MG 1 TAB PO (09:11)
[2024-03-09] MEDS: B COMPLEX w/VITAMIN C 1 CAPLET PO (09:11)
[2024-03-09] MEDS: KCL 20 MEQ PO ×2 (09:11→16:42)
[2024-03-09] MEDS: LASIX 40 MG IV (09:12)
[2024-03-09] MEDS: COREG 3.125 MG PO (09:12)
[2024-03-09] MEDS: VITAMIN D3 (cholecalciferol) 25 MCG PO (09:12)
[2024-03-09] MEDS: PACERONE 200 MG PO (09:12)
[2024-03-09 11:23] LABS: APTT 58.5 Sec (23.4-35.0)
--- NOTE | 2024-03-09 12:23 | W.PN.HOSP.TC ---
Today's Communication/Plan
-
Cardiac cath per cardiology
Continue heparin
P.o. Lasix
Trend creatinine
Assessment / Plan
Assessment / Plan
General: Well Developed, Well Nourished and No Apparent Distress
HEENT: NormoCephalic, Moist mucous membranes and Atraumatic
Respiratory: Clear
Cardiac: S1/S2 and Murmur; No Rub
GI: Soft, Non Tender, Non Distended and Normal Bowel Sounds; No Organomegaly
Musculoskeletal: No Clubbing, No Cyanosis, Edema, Left Lower Extremity and Edema, Right Lower Extremity improving
Skin: No Rash
Neuro: Awake, AO x 3, No Motor Deficits and Nonfocal/grossly intact, poor insight
Psych: Calm
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
#Valvular disease with moderate to severe mitral regurgitation and moderate tricuspid regurgitation
Status post 40 mg IV Lasix twice daily and now transition to 80 mg p.o. Lasix.
Strict I's and O's with daily weights.
Monitor creatinine aggressive diuresis
Start patient on goal-directed medical therapy per cardiology at sensitive to multiple medications
Started on Entresto and Aldactone and low-dose carvedilol. Due to hypotension Entresto and Aldactone was held overnight.
With new onset of reduction in EF-Plan for cardiac cath-timing to be decided
Monitor Cr as on multiple new meds and IV diuresis
Cardiology consultation
#Ventricular tachycardia status post ICD implantation
Amiodarone dose increased to 200 mg daily
Monitor on telemetry. Monitor electrolytes
ICD interrogation ?
Plan for ICD generator change exchange this admission
#Paroxysmal atrial fibrillation now persistent
#Chronic coagulopathy with Coumadin
INR 1.8 Patient started on heparin infusion.
Continue amiodarone
TAMIE/CV this admit
Consider switching atenolol to carvedilol
Hyperlipidemia
Continue low-dose Lipitor
Check lipids in am
History of PE
History of DVT
History of antiphospholipid antibody syndrome
Start patient on heparin infusion. Restart Coumadin post procedures.
Oncology correspondence noted-recommend to continue Coumadin
Hypokalemia
replete/monitor.
DVT ppx-coumadin/scds
d/w with son at bedside in details on admission
Full code
Patient highly upset due to delay in care. At times seems patient does not understand acuity of situation. Possible poor insight into disease process.
Anticipated Discharge: > 48 hours
Subjective/Interval History
-
Date of Service: March 09, 2024
Patient feeling better
Improvement in lower extremity edema
Objective Data
-
Labs:
Laboratory Results
03/09/24 03/09/24 03/09/24
01:01 05:59 10:30
PT 20.9 H
INR 1.82
APTT 135.9 H 58.5 H
Sodium 141
Potassium 4.2
Chloride 105
Carbon Dioxide 26
BUN 26 H
Creatinine 1.1 H
Glucose 99
Calcium 9.3
03/09/24
17:30
PT
INR
APTT Pending
Sodium
Potassium
Chloride
Carbon Dioxide
BUN
Creatinine
Glucose
Calcium
Vital Signs:
Vital Signs
Temp Pulse Resp BP Pulse Ox
97.9 F 62 14 94/56 96
03/09/24 11:00 03/09/24 11:00 03/09/24 11:00 03/09/24 11:00 03/09/24 11:00
I&O
03/08/24 03/09/24 03/10/24
06:59 06:59 06:59
Intake Total 450 / 450 938.5 / 938.5
Output Total 1650 / 1650
Balance -1200 / -1200 938.5 / 938.5
--- NOTE | 2024-03-09 13:29 | W.PN.CARDCBS ---
Today's Communication / Plan
-
Continue IV heparin
Plan for right/left heart catheterization 03/11/2024
Eventual generator change with EP as well as possible TAMIE/cardioversion prior to discharge
Impression / Plan
-
PCP: Unknown
Cardiology: Dr. Jeannine Tovar
Heme/Onc: Dr. Starr
Impression:
Acute on chronic HFrEF
Recurrent cardiomyopathy, EF 32% by Rachel's method and 25-30% visually on echo 03/06/24
EF previously as low as 30% by echo 10/17/19 and then improved to 50% by echo 12/16/22
Persistent Afib
Chronic amiodarone therapy
Chronic warfarin OAC managed by [facility]
Nonobstructive CAD including 40% proximal LAD lesion by cath 07/07/08
h/o cardiac arrest 02/2009
s/p [employer] ICD, s/p generator change 05/30/13
h/o NSVT
Anti-cardiolipin antibody syndrome
positive for anti-cardiolipin antibody IgM
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
Echo 02/2009: EF 35-40%
Echo 05/23/13: EF 40%
Echo 01/28/15: EF 40-45%
Echo 06/02/15: EF 55-60%
Echo 11/23/15: EF 55-60%
Echo 03/2017: EF 50-55%, mod MR, PASP 35-40mmHg
Echo 01/01/18: EF 45%
Echo 10/17/19: EF 30-35% with global hypokinesis
Echo 12/14/20: EF 50-55%
Echo 12/16/22: EF 50%, mod MR, mod TR with PAP 52 mmHg
Echo 03/06/24: EF 25 to 30% visually, 32% by Rachel's method, endocardial definition is limited, but in some views apex, distal septum appear hypokinetic, mild concentric LVH, moderate to severe MR, no aortic regurgitation, moderate TR with PAP 46
mmHg
Plan:
-Heart failure with reduced ejection fraction with new worsening ejection fraction on echocardiogram from 03/06/2024
-Volume status is improved and appears euvolemic
-Diuresed well with IV Lasix and transition to Lasix 80 mg daily
-Creatinine slightly increased today with diuresis and will monitor over the weekend
-Optimize goal-directed medical therapy as able
-Plan for cardiac catheterization on Monday, March 11, 2024
-Rapid atrial fibrillation
-Rate control strategy with eventual plan for TAMIE/cardioversion
-Prior device interrogation showed that she had been in persistent atrial fibrillation for about 16 months
-Continue amiodarone
-Warfarin therapy held for upcoming cardiac procedures. Continue IV heparin drip
Patient has a [employer] ICD and will need a generator change prior to discharge per EP
-Tentative plan would be for generator change next week pending results of cardiac catheterization
History of DVT and cardiolipin antibody followed by hematology
-Chronically on warfarin therapy currently on IV heparin awaiting cardiac procedures
HPI: Patient was seen for a regularly scheduled echo and office visit today and was noted to have CM and acute HF, she was referred to [facility] and cardiology is now consulted. Patient has a h/o CM as far back as 2007, she had cardiac cath at that time
and she had a 40% proximal LAD lesion, but no other significantly obstructive CAD. Patient then had cardiac arrest in 02/2009 and had an ICD placed at that time. Patient found to have Afib on device check and also has a h/o ICD shocks for unclear
reasons. She is chronically on amiodarone 50 mg daily and warfarin. Patient has been taking warfarin since the PE in [address] Starr at that time and tested positive for anticardiolipin IgM antibody. Patient has had EF up and down since
then. Patient has not wanted to switch from atenolol to Coreg or Toprol XL in the past. Patient has been agreeable to losartan though. Patient appeared to be in acute HF in the office today and on echo her EF was down to 25% visually. Patient was
referred to [facility].
Progress Note - Hearing Aid Dispenser
Subjective
Date of Service: March 09, 2024
Patient seen and examined sitting out of bed to chair and in good spirits. Offers no complaints. We reviewed tentative plan for next week regarding cardiac procedures and testing
Objective
Labs:
03/08/24 06:15
03/09/24 05:59
Labs
Hgb 14.4 g/dL (12.0-16.0) 03/08/24 06:15
Hct 43.7 % (37.0-47.0) 03/08/24 06:15
Plt Count 176 10^3/uL (130-400) 03/08/24 06:15
PT 20.9 Sec (11.4-14.6) H 03/09/24 05:59
INR 1.82 03/09/24 05:59
APTT 58.5 Sec (23.4-35.0) H 03/09/24 10:30
Sodium 141 mmol/L (135-145) 03/09/24 05:59
Potassium 4.2 mmol/L (3.5-5.1) 03/09/24 05:59
BUN 26 mg/dl (7-17) H 03/09/24 05:59
Creatinine 1.1 mg/dL (0.6-1.0) H 03/09/24 05:59
Glucose 99 mg/dl (70-99) 03/09/24 05:59
Troponins
03/06/24
13:25
Troponin I < 0.012
Vital Signs and I&O:
Vital Signs
Temp Pulse Resp BP Pulse Ox
97.9 F 62 14 94/56 96
03/09/24 11:00 03/09/24 11:00 03/09/24 11:00 03/09/24 11:00 03/09/24 11:00
Vital Signs
Temp Pulse Resp BP Pulse Ox
97.9 F 62 14 94/56 96
03/09/24 11:00 03/09/24 11:00 03/09/24 11:00 03/09/24 11:00 03/09/24 11:00
Intake & Output
03/07/24 03/08/24 03/09/24 03/10/24
06:59 06:59 06:59 06:59
Intake Total 480 / 480 450 / 450 938.5 / 938.5
Output Total 1650 / 1650
Balance 480 / 480 -1200 / -1200 938.5 / 938.5
Physical Exam
Physical Exam
GEN: AAO x3, NAD on room air
HEENT: mmm
LUNGS: Bronchovesicular breath sounds clear bilateral
CV: Irregularly irregular. Positive S1-S2. 2/6 SM + device
ABD: ND, nontender, positive bowel sound
EXT: No lower extremity edema
[2024-03-09 17:40] LABS: APTT 130.4 Sec (23.4-35.0)
[2024-03-09] MEDS: HEPARIN 25000 UNITS/250 ML IV (19:17)
[2024-03-09] MEDS: COREG PO (20:40)
[2024-03-09] MEDS: ENTRESTO 24 MG/26 MG PO (20:40)
[2024-03-10 00:51] LABS: APTT 114.4 Sec (23.4-35.0)
[2024-03-10 03:32] VITALS: BP 120/75
[2024-03-10 07:28] VITALS: BP 108/71
[2024-03-10 07:31] LABS: INR 1.69; PT 19.7 Sec (11.4-14.6)
[2024-03-10 07:40] LABS: Hematocrit 42.3 % (37.0-47.0); Hemoglobin 14.4 g/dL (12.0-16.0); Mean Corpuscular Hgb 29.8 pg (27.0-31.0); Mean Corpuscular Volume 87.4 fL (81.0-99.0); Mean Platelet Volume 10.4 fL (7.4-10.4); Platelet Count 179 10^3/uL (130-400); Red Blood Cell Count 4.84 10^6/uL (4.20-5.40); Red Cell Dist. Width 15.3 % (11.5-14.5); White Blood Cell Count 4.3 10^3/uL (4.8-10.8)
[2024-03-10] MEDS: COREG 3.125 MG PO ×2 (08:30→20:58)
[2024-03-10] MEDS: PACERONE 200 MG PO (08:31)
[2024-03-10 09:08] LABS: Blood Urea Nitrogen 27 mg/dl (7-17); Calcium 9.2 mg/dl (8.4-10.2); Carbon Dioxide 26 mmol/L (22-30); Chloride 106 mmol/L (98-107); Glucose 96 mg/dl (70-99); Potassium 4.5 mmol/L (3.5-5.1); Sodium 138 mmol/L (135-145); eGFR 43.81
[2024-03-10] MEDS: ALDACTONE PO (10:29)
[2024-03-10] MEDS: ENTRESTO 24 MG/26 MG PO (10:44)
[2024-03-10] MEDS: B COMPLEX w/VITAMIN C 1 CAPLET PO (11:05)
[2024-03-10] MEDS: VITAMIN D3 (cholecalciferol) 25 MCG PO (11:05)
[2024-03-10] MEDS: LIPITOR 10 MG PO (11:05)
--- NOTE | 2024-03-10 11:15 | W.PN.HOSP.TC ---
Today's Communication/Plan
-
Hold lasix/aldactone/entresto
trend cr
IV hep
tentative plan for cath in am
Assessment / Plan
Assessment / Plan
General: Well Developed, Well Nourished and No Apparent Distress
HEENT: NormoCephalic, Moist mucous membranes and Atraumatic
Respiratory: Clear
Cardiac: S1/S2 and Murmur; No Rub
GI: Soft, Non Tender, Non Distended and Normal Bowel Sounds; No Organomegaly
Musculoskeletal: No Clubbing, No Cyanosis, Edema, Left Lower Extremity and Edema, Right Lower Extremity improving
Skin: No Rash
Neuro: Awake, AO x 3, No Motor Deficits and Nonfocal/grossly intact, poor insight
Psych: Calm
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
#Valvular disease with moderate to severe mitral regurgitation and moderate tricuspid regurgitation
Status post 40 mg IV Lasix twice daily and now transition to 80 mg p.o. Lasix.
Strict I's and O's with daily weights.
Monitor creatinine aggressive diuresis
Start patient on goal-directed medical therapy per cardiology at sensitive to multiple medications
Started on Entresto and Aldactone and low-dose carvedilol. Due to hypotension Entresto and Aldactone was held overnight.
With new onset of reduction in EF-Plan for cardiac cath-timing to be decided
Monitor Cr as on multiple new meds and s/p IV diuresis
Now on 80mg po lasix. Held for now
Aldactone held too
Cardiology consultation
#SANCHEZ likely multifactorial due to multiple meds and IV diuresis
Lasix,aldactone and entresto held for now
trend cr
#Ventricular tachycardia status post ICD implantation
Amiodarone dose increased to 200 mg daily
Monitor on telemetry. Monitor electrolytes
ICD interrogation ?
Plan for ICD generator change exchange this admission
#Paroxysmal atrial fibrillation now persistent
#Chronic coagulopathy with Coumadin
INR 1.69 Patient started on heparin infusion.
Continue amiodarone
TAMIE/CV this admit
Consider switching atenolol to carvedilol
Hyperlipidemia
Continue low-dose Lipitor
Check lipids in am
History of PE
History of DVT
History of antiphospholipid antibody syndrome
Start patient on heparin infusion. Restart Coumadin post procedures.
Oncology correspondence noted-recommend to continue Coumadin
Hypokalemia
replete/monitor.
DVT ppx-coumadin/scds
d/w with son at bedside in details on admission
Full code
Patient highly upset due to delay in care. At times seems patient does not understand acuity of situation. Possible poor insight into disease process.
Anticipated Discharge: > 48 hours
Subjective/Interval History
-
Date of Service: March 10, 2024
frustrated with delay in care
remains on hep gtt
Objective Data
-
Labs:
Laboratory Results
03/10/24 03/10/24 03/10/24
00:34 07:05 13:00
WBC 4.3 L
Hgb 14.4
Hct 42.3
Plt Count 179
PT 19.7 H
INR 1.69
APTT 114.4 H 98.0 H Pending
Sodium 138
Potassium 4.5
Chloride 106
Carbon Dioxide 26
BUN 27 H
Creatinine 1.2 H
Glucose 96
Calcium 9.2
Vital Signs:
Vital Signs
Temp Pulse Resp BP Pulse Ox
97.4 F 84 17 94/56 97
03/10/24 07:28 03/10/24 07:28 03/10/24 07:28 03/10/24 10:44 03/10/24 07:28
I&O
03/09/24 03/10/24 03/11/24
06:59 06:59 06:59
Intake Total 938.5 / 938.5 720 / 720
Balance 938.5 / 938.5 720 / 720
[2024-03-10 11:36] VITALS: BP 91/58
[2024-03-10 13:40] LABS: APTT 106.1 Sec (23.4-35.0)
--- NOTE | 2024-03-10 18:47 | W.PN.CARDCBS ---
Today's Communication / Plan
-
N.p.o. after midnight for left/right heart catheterization 03/11/2024
Continue IV heparin drip
Impression / Plan
-
PCP: Unknown
Cardiology: Dr. Jeannine Tovar
Heme/Onc: Dr. Starr
Impression:
Acute on chronic HFrEF
Recurrent cardiomyopathy, EF 32% by Rachel's method and 25-30% visually on echo 03/06/24
EF previously as low as 30% by echo 10/17/19 and then improved to 50% by echo 12/16/22
Persistent Afib
Chronic amiodarone therapy
Chronic warfarin OAC managed by [facility]
Nonobstructive CAD including 40% proximal LAD lesion by cath 07/07/08
h/o cardiac arrest 02/2009
s/p [employer] ICD, s/p generator change 05/30/13
h/o NSVT
Anti-cardiolipin antibody syndrome
positive for anti-cardiolipin antibody IgM
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
Echo 02/2009: EF 35-40%
Echo 05/23/13: EF 40%
Echo 01/28/15: EF 40-45%
Echo 06/02/15: EF 55-60%
Echo 11/23/15: EF 55-60%
Echo 03/2017: EF 50-55%, mod MR, PASP 35-40mmHg
Echo 01/01/18: EF 45%
Echo 10/17/19: EF 30-35% with global hypokinesis
Echo 12/14/20: EF 50-55%
Echo 12/16/22: EF 50%, mod MR, mod TR with PAP 52 mmHg
Echo 03/06/24: EF 25 to 30% visually, 32% by Rachel's method, endocardial definition is limited, but in some views apex, distal septum appear hypokinetic, mild concentric LVH, moderate to severe MR, no aortic regurgitation, moderate TR with PAP 46
mmHg
Plan:
-Heart failure with reduced ejection fraction with new worsening ejection fraction on echocardiogram from 03/06/2024
-Volume status is improved and appears euvolemic
-Diuresed well with IV Lasix and transition to Lasix 80 mg daily [held with plan for the left/right heart catheterization in the morning given increased creatinine]
-Creatinine slightly increased with diuresis; hold further diuretics pending left heart catheterization in the morning
-Optimize goal-directed medical therapy as able
-Plan for cardiac catheterization on Monday, March 11, 2024
-Rapid atrial fibrillation
-Rate control strategy with eventual plan for TAMIE/cardioversion
-Prior device interrogation showed that she had been in persistent atrial fibrillation for about 16 months
-Continue amiodarone
-Warfarin therapy held for upcoming cardiac procedures. Continue IV heparin drip
Patient has a [employer] ICD and will need a generator change prior to discharge per EP
-Tentative plan would be for generator change next week pending results of cardiac catheterization
History of DVT and cardiolipin antibody followed by hematology
-Chronically on warfarin therapy currently on IV heparin awaiting cardiac procedures
Acute on chronic renal sufficiency with IV diuresis
-Baseline creatinine 0.9�1, currently 1.2
-Held Entresto, Aldactone and Lasix in anticipation of left heart catheterization in the morning with plan to resume following procedure
HPI: Patient was seen for a regularly scheduled echo and office visit today and was noted to have CM and acute HF, she was referred to [facility] and cardiology is now consulted. Patient has a h/o CM as far back as 2007, she had cardiac cath at that time
and she had a 40% proximal LAD lesion, but no other significantly obstructive CAD. Patient then had cardiac arrest in 02/2009 and had an ICD placed at that time. Patient found to have Afib on device check and also has a h/o ICD shocks for unclear
reasons. She is chronically on amiodarone 50 mg daily and warfarin. Patient has been taking warfarin since the PE in [address] Starr at that time and tested positive for anticardiolipin IgM antibody. Patient has had EF up and down since
then. Patient has not wanted to switch from atenolol to Coreg or Toprol XL in the past. Patient has been agreeable to losartan though. Patient appeared to be in acute HF in the office today and on echo her EF was down to 25% visually. Patient was
referred to [facility].
Progress Note - Game Advisor
Subjective
Date of Service: March 10, 2024
Seen and examined. Patient offers no new complaints.
Objective
Labs:
03/10/24 07:05
03/10/24 07:05
Labs
Hgb 14.4 g/dL (12.0-16.0) 03/10/24 07:05
Hct 42.3 % (37.0-47.0) 03/10/24 07:05
Plt Count 179 10^3/uL (130-400) 03/10/24 07:05
PT 19.7 Sec (11.4-14.6) H 03/10/24 07:05
INR 1.69 03/10/24 07:05
APTT 106.1 Sec (23.4-35.0) H 03/10/24 12:56
Sodium 138 mmol/L (135-145) 03/10/24 07:05
Potassium 4.5 mmol/L (3.5-5.1) 03/10/24 07:05
BUN 27 mg/dl (7-17) H 03/10/24 07:05
Creatinine 1.2 mg/dL (0.6-1.0) H 03/10/24 07:05
Glucose 96 mg/dl (70-99) 03/10/24 07:05
Vital Signs and I&O:
Vital Signs
Temp Pulse Resp BP Pulse Ox
97.6 F 81 17 91/58 98
03/10/24 11:36 03/10/24 11:36 03/10/24 11:36 03/10/24 11:36 03/10/24 11:36
Vital Signs
Temp Pulse Resp BP Pulse Ox
97.6 F 81 17 91/58 98
03/10/24 11:36 03/10/24 11:36 03/10/24 11:36 03/10/24 11:36 03/10/24 11:36
Intake & Output
03/08/24 03/09/24 03/10/24 03/11/24
06:59 06:59 06:59 06:59
Intake Total 450 / 450 938.5 / 938.5 720 / 720 120 / 120
Output Total 1650 / 1650
Balance -1200 / -1200 938.5 / 938.5 720 / 720 120 / 120
Physical Exam
Physical Exam
GEN: AAO x3, NAD on room air
HEENT: mmm
LUNGS: Bronchovesicular breath sounds clear bilateral
CV: Irregularly irregular. Positive S1-S2. 2/6 SM + device
ABD: ND, nontender, positive bowel sound
EXT: No lower extremity edema
[2024-03-10 19:22] VITALS: BP 125/86
[2024-03-10 23:27] VITALS: BP 91/57
[2024-03-10 23:34] VITALS: BP 101/60
[2024-03-10] MEDS: HEPARIN 25000 UNITS/250 ML IV (23:45)
[2024-03-11] VITALS (9 sets, daily range): BP systolic 96–117; BP diastolic 57–73
[2024-03-11 07:10] LABS: INR 1.56; PT 18.5 Sec (11.4-14.6)
[2024-03-11 07:12] LABS: APTT 106.5 Sec (23.4-35.0)
[2024-03-11 07:44] LABS: Blood Urea Nitrogen 27 mg/dl (7-17); Calcium 9.2 mg/dl (8.4-10.2); Carbon Dioxide 26 mmol/L (22-30); Chloride 105 mmol/L (98-107); Glucose 87 mg/dl (70-99); Potassium 4.8 mmol/L (3.5-5.1); Sodium 138 mmol/L (135-145); eGFR 54.53
[2024-03-11] MEDS: B COMPLEX w/VITAMIN C 1 CAPLET PO (08:45)
[2024-03-11] MEDS: LIPITOR 10 MG PO (08:45)
[2024-03-11] MEDS: COREG 3.125 MG PO (08:45)
[2024-03-11] MEDS: VITAMIN D3 (cholecalciferol) 25 MCG PO (08:46)
[2024-03-11] MEDS: PACERONE 200 MG PO (08:46)
--- NOTE | 2024-03-11 11:10 | W.PN.HOSP.TC ---
Today's Communication/Plan
-
hep gtt
cath today
cards recs
GDMT held due to sanchez
Assessment / Plan
Assessment / Plan
General: Well Developed, Well Nourished and No Apparent Distress
HEENT: NormoCephalic, Moist mucous membranes and Atraumatic
Respiratory: Clear
Cardiac: S1/S2 and Murmur; No Rub
GI: Soft, Non Tender, Non Distended and Normal Bowel Sounds; No Organomegaly
Musculoskeletal: No Clubbing, No Cyanosis, Edema, Left Lower Extremity and Edema, Right Lower Extremity improving
Skin: No Rash
Neuro: Awake, AO x 3, No Motor Deficits and Nonfocal/grossly intact, poor insight
Psych: Calm
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
#Valvular disease with moderate to severe mitral regurgitation and moderate tricuspid regurgitation
Status post 40 mg IV Lasix twice daily and now transition to 80 mg p.o. Lasix.
Strict I's and O's with daily weights.
Monitor creatinine aggressive diuresis
Start patient on goal-directed medical therapy per cardiology at sensitive to multiple medications
Started on Entresto and Aldactone and low-dose carvedilol. Due to hypotension Entresto and Aldactone was held overnight.
With new onset of reduction in EF-Plan for cardiac cath-timing to be decided
Monitor Cr as on multiple new meds and s/p IV diuresis
Now on 80mg po lasix. Held for now
Aldactone held too
Cardiology consultation
#SANCHEZ likely multifactorial due to multiple meds and IV diuresis
Lasix,aldactone and entresto held for now
trend cr
Cr improved.
#Ventricular tachycardia status post ICD implantation
Amiodarone dose increased to 200 mg daily
Monitor on telemetry. Monitor electrolytes
ICD interrogation ?
Plan for ICD generator change exchange this admission
#Paroxysmal atrial fibrillation now persistent
#Chronic coagulopathy with Coumadin
INR 1.5 Patient started on heparin infusion.
Continue amiodarone
TAMIE/CV this admit
Consider switching atenolol to carvedilol
Hyperlipidemia
Continue low-dose Lipitor
History of PE
History of DVT
History of antiphospholipid antibody syndrome
Start patient on heparin infusion. Restart Coumadin post procedures.
Oncology correspondence noted-recommend to continue Coumadin
Hypokalemia
replete/monitor.
DVT ppx-hep gtt
Full code
Patient highly upset due to delay in care. At times seems patient does not understand acuity of situation. Possible poor insight into disease process.
Anticipated Discharge: > 48 hours
Subjective/Interval History
-
Date of Service: March 11, 2024
waiting for cath
bp improved
Objective Data
-
Labs:
Laboratory Results
03/11/24
06:19
PT 18.5 H
INR 1.56
APTT 106.5 H
Sodium 138
Potassium 4.8
Chloride 105
Carbon Dioxide 26
BUN 27 H
Creatinine 1.0
Glucose 87
Calcium 9.2
Vital Signs:
Vital Signs
Temp Pulse Resp BP Pulse Ox
97.6 F 90 18 112/73 98
03/11/24 07:30 03/11/24 07:30 03/11/24 07:30 03/11/24 07:30 03/11/24 07:30
I&O
03/10/24 03/11/24 03/12/24
06:59 06:59 06:59
Intake Total 720 / 720 216 / 216
Output Total 375 / 375
Balance 720 / 720 -159 / -159
[2024-03-11 14:13] LABS: ACT-LR - POC 295 Seconds (116-155)
--- NOTE | 2024-03-11 14:40 | CM ---
CM reviewed chart- ADC >48 hours
Pt noted to be independent throughout room
Planned for heart cath today
CM will continue to follow for dc planning
Discharge Disposition- home, follow for needs
--- NOTE | 2024-03-11 14:44 | ITS.CL.CATH ---
Compliance Analyst - Catheterization
Cardiac Catheterization
Procedure Report:
RIGHT AND LEFT HEART STUDY
Date of Procedure: March 11, 2024
Referring: Dr. Jeannine Tovar
PROCEDURES:
1. Right heart catheterization
2. Left heart catheterization with coronary and single-plane left ventriculography
3. Hemodynamic assessment of LAD with a Maxwell Omni wire. The iFR serially measured above the ischemic threshold
INDICATION: This is an 88-year-old female with persistent atrial fibrillation and newly reduced LV systolic function after recovery of LVEF from nonischemic cardiomyopathy in 2007. The most recent echocardiogram was notable for an estimated
ejection fraction of 25-30% with severe mitral regurgitation. She has a history of anticardiolipin antibody and is chronically maintained on oral anticoagulation with warfarin. She was seen by Dr. Jeannine Tovar and appeared to be in acute heart
failure and was admitted to [facility]. She is now referred for right and left heart catheterization. Her ICD is approaching NAVIN in 3 months and the current plan is to proceed with TAMIE cardioversion. She had been on amiodarone 100 mg
daily. She has been on 200 mg of amiodarone since she was hospitalized and has received a loading dose of 1000 mg.
ACCESS: Right radial artery, 6 Macedonian sheath and right brachial vein, 6 Macedonian sheath
HEMODYNAMICS : mmHg
RA (m) : 8
RV (s/d) : 25/2
PA (s/d, m) : 28/15, 19
PCWP (m) : 20 with V waves to 34
AO (s/d, m) : 105/68, 83
LV (s/d) : 111/6
LVEDP : 12
Estimated Tito Cardiac Output: 2.8 L / min and Cardiac Index: 1.7 L/ min / m-2
CORONARY FINDINGS :
Dominance: Right
LEFT MAIN: Normal
LEFT ANTERIOR DESCENDING: The LAD arises normally from the left main and runs in the anterior interventricular groove. The first diagonal branch arises proximally from the LAD is a very small caliber vessel. The second diagonal branch is large and
bifurcates in its midportion with luminal irregularities with no focal obstructive stenosis. The third diagonal branch has an angiographically stable 40% mid stenosis. The mid LAD beyond the third diagonal branch has a 40-50% stenosis and the iFR
in the distal LAD serially measured well above the ischemic threshold at 0.96, 0.96, and 0.97
CIRCUMFLEX: The circumflex is large supplying a large OM1 and small OM 2
RIGHT CORONARY ARTERY: The right coronary artery is a large-caliber dominant vessel supplying a large PDA. Minor irregularities are noted with no focal obstructive stenosis
VENTRICULOGRAPHY: Left ventriculography was performed in FERNANDEZ projection. The digital single-plane left ventricular ejection fraction is visually estimated at 25-30% with +2 mitral regurgitation to a dilated left atrium
HEMODYNAMIC ASSESSMENT OF THE LAD WITH A myhomemoveO OMNI WIRE: The origin of the left main was cannulated with a 5 Fr JL 3.5 guide catheter. Intravenous heparin was administered and the ACT was followed during the procedure. Two hundred micrograms of
intracoronary nitroglycerin was given through the guide catheter. A [place] Omni wire was advanced to the guide catheter tip and normalized to guide catheter pressure. The Omni wire was then carefully manipulated across the stenosis in the mid LAD
where the iFR serially measured above the ischemic threshold at 0.96, 0.96, and 0.97. The Omni wire was withdrawn to the guide catheter where the Pd/Pa measured 0.99 confirming no baseline drift.
RADIATION SUMMARY: Fluoro Time (min): 7.2, Dose (mGy): 140, DAP (Gy.cm2) : 12.6
CONCLUSIONS
1. Dilated nonischemic cardiomyopathy with visually estimated ejection fraction of 25-30%. There is +2 mitral regurgitation
2. Mildly elevated left ventricular filling pressures
3. Nonobstructive coronary artery disease
RECOMMENDATIONS
1. Plan TAMIE cardioversion on 03/12/2024. Her INR had fallen below therapeutic range over several days within the past several weeks. TAMIE will also help with evaluation of mitral regurgitation which was felt to be severe by transthoracic
echocardiogram
2. ICD is approaching NAVIN. The plan is to proceed with cardioversion with ICD generator replacement 4 to 6 weeks following the cardioversion
Copy to: Dr. Jeannine Tovar
--- NOTE | 2024-03-11 15:20 | W.PN.UPDATE ---
Update Note
Progress Note Update
She is planned for transesophageal echo and cardioversion with continued IV heparin and transition to warfarin. Transesophageal echo and cardioversion is planned for tomorrow.
She also has 3 months remaining on her ICD battery.
In an effort to reduce potential for bleeding complications as well as to be able to better manage potential bleeding complications at time of generator change (with TAMIE and cardioversion she will be receiving intravenous heparin with transition to
oral warfarin and would be at high risk of thromboembolic event should interruption of anticoagulation be needed within the first 3 to 4 weeks after cardioversion) will plan for ICD generator change in approximately 4 to 6 weeks after
transesophageal echo and cardioversion.
ICD generator change in 4 to 6 weeks can be done while maintaining therapeutic warfarin anticoagulation.
[2024-03-11] MEDS: COUMADIN 2.5 MG PO (18:22)
[2024-03-11] MEDS: COREG PO (21:00)
[2024-03-12] VITALS (7 sets, daily range): BP systolic 96–130; BP diastolic 66–93; BMI 24.7
[2024-03-12 03:24] LABS: APTT 175.1 Sec (23.4-35.0)
[2024-03-12 07:13] LABS: INR 1.38; PT 16.8 Sec (11.4-14.6)
[2024-03-12 07:28] LABS: Blood Urea Nitrogen 22 mg/dl (7-17); Calcium 9.3 mg/dl (8.4-10.2); Carbon Dioxide 23 mmol/L (22-30); Chloride 107 mmol/L (98-107); Estimated Creatinine Clearance 35 ml/min; Glucose 84 mg/dl (70-99); Potassium 4.7 mmol/L (3.5-5.1); Sodium 138 mmol/L (135-145); eGFR > 60.00
[2024-03-12] MEDS: COREG 3.125 MG PO ×2 (07:37→20:18)
[2024-03-12] MEDS: PACERONE 200 MG PO (07:37)
[2024-03-12] MEDS: VITAMIN D3 (cholecalciferol) 25 MCG PO (10:25)
[2024-03-12] MEDS: B COMPLEX w/VITAMIN C 1 CAPLET PO (10:25)
[2024-03-12] MEDS: LIPITOR 10 MG PO (10:26)
--- NOTE | 2024-03-12 11:34 | W.PN.HOSP.TC ---
Today's Communication/Plan
-
restart GDMT with diuretics as BP/Cr improving
hep
restart coumadin per Cards
npo in am
cards recs
Assessment / Plan
Assessment / Plan
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
#Dilated nonischemic cardiomyopathy
#Valvular disease with moderate to severe mitral regurgitation and moderate tricuspid regurgitation
Status post 40 mg IV Lasix twice daily and now transition to 80 mg p.o. Lasix.
Strict I's and O's with daily weights.
Monitor creatinine aggressive diuresis
Start patient on goal-directed medical therapy per cardiology at sensitive to multiple medications
Started on Entresto and Aldactone and low-dose carvedilol. Due to hypotension Entresto and Aldactone was held overnight.
s/p cardiac cath nonobstructive coronary artery disease. Mildly elevated left ventricular filling pressure. Dilated nonischemic cardiomyopathy with a EF of 25-30%. 2+ mitral regurgitation.
Monitor Cr as on multiple new meds and s/p IV diuresis
Now on 80mg po lasix. Held for now
Aldactone held too
restart GDMT as Cr continue to improve and as BP allows.
Cardiology consultation
#Left atrial appendage thrombus
DCCV not performed
Continue with hep gtt
#SACNHEZ likely multifactorial due to multiple meds and IV diuresis
Lasix,aldactone and entresto held for now
trend cr
Cr improved.
#Ventricular tachycardia status post ICD implantation
Amiodarone dose increased to 200 mg daily
Monitor on telemetry. Monitor electrolytes
ICD interrogation ?
Plan for ICD generator change tomm per EP/Cards.
#Paroxysmal atrial fibrillation now persistent
#Chronic coagulopathy with Coumadin
INR 1.3 Patient started on heparin infusion.
Continue amiodarone
Hyperlipidemia
Continue low-dose Lipitor
History of PE
History of DVT
History of antiphospholipid antibody syndrome
Start patient on heparin infusion. Restart Coumadin post procedures.
Oncology correspondence noted-recommend to continue Coumadin
Hypokalemia
replete/monitor.
DVT ppx-hep gtt
Full code
Patient highly upset due to delay in care. At times seems patient does not understand acuity of situation. Possible poor insight into disease process.
Anticipated Discharge: > 48 hours
Subjective/Interval History
-
Date of Service: March 12, 2024
seen post TAMIE
Objective Data
-
Labs:
Laboratory Results
03/12/24 03/12/24 03/12/24
02:48 06:35 10:01
PT 16.8 H
INR 1.38
APTT 175.1 H* 44.0 H
Sodium 138
Potassium 4.7
Chloride 107
Carbon Dioxide 23
BUN 22 H
Creatinine 0.9
Glucose 84
Calcium 9.3
03/12/24
16:50
PT
INR
APTT Pending
Sodium
Potassium
Chloride
Carbon Dioxide
BUN
Creatinine
Glucose
Calcium
Vital Signs:
Vital Signs
Temp Pulse Resp BP Pulse Ox
97.7 F 78 16 112/66 98
03/12/24 10:30 03/12/24 10:30 03/12/24 10:30 03/12/24 10:30 03/12/24 10:30
I&O
03/11/24 03/12/24 03/13/24
06:59 06:59 06:59
Intake Total 216 / 216
Output Total 375 / 375 500 / 500
Balance -159 / -159 -500 / -500
Physical Exam
-
General: Well Developed and No Apparent Distress
HEENT: Normocephalic, Atraumatic and Moist Mucous Membranes
GI: Soft and Nondistended; Negative Organomegaly
Rectal: Deferred by Provider
Musculoskeletal: No Clubbing, No Cyanosis, Edema, Right Lower Extrem and Edema, Left Lower Extrem
Skin: Negative Rash
Neuro: Awake, AO x 3, No Motor Deficits and Nonfocal/Grossly Intact
Psych: Calm
--- NOTE | 2024-03-12 14:53 | W.PN.CARDCBS ---
Addendum entered and electronically signed by Josh Martinez MD 03/12/24 15:54:
I saw and examined the patient.
The Rn Quality's note was reviewed and I agree with the note.
Comment: Briefly, 88-year-old woman past medical history of heart failure with reduced ejection fraction in the setting of nonischemic cardiomyopathy and persistent atrial fibrillation who presented in decompensated heart failure
Underwent IV diuresis with improvement in her volume status, LVEDP 12 mmHg by invasive hemodynamics on 03/11/24, now transitioned to PO diuretics
TAMIE this AM identified RALF thrombus and therefore DCCV was not performed, continue heparin to warfarin bridge, can consider repeat TAMIE/DCCV as an outpatient
BB for rate control of AFib
Chronically on amio, would continue in anticipation for DCCV in the future
ICD is approaching NAVIN, plan for generator change tomorrow
Original Note:
Today's Communication / Plan
-
RALF thrombus on TAMIE, CV cancelled, cont amio, cont Hep to Coumadin bridge
Generator change tomorrow
Impression / Plan
-
PCP: Unknown
Cardiology: Dr. Jeannine Tovar
Heme/Onc: Dr. Starr
Impression:
Acute on chronic HFrEF
Recurrent cardiomyopathy, EF 32% by Rachel's method and 25-30% visually on echo 03/06/24
EF previously as low as 30% by echo 10/17/19 and then improved to 50% by echo 12/16/22
Persistent Afib
Chronic amiodarone therapy
Chronic warfarin OAC managed by [facility]
Nonobstructive CAD including 40% proximal LAD lesion by cath 07/07/08
h/o cardiac arrest 02/2009
s/p [employer] ICD, s/p generator change 05/30/13
h/o NSVT
Anti-cardiolipin antibody syndrome
positive for anti-cardiolipin antibody IgM
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
Echo 02/2009: EF 35-40%
Echo 05/23/13: EF 40%
Echo 01/28/15: EF 40-45%
Echo 06/02/15: EF 55-60%
Echo 11/23/15: EF 55-60%
Echo 03/2017: EF 50-55%, mod MR, PASP 35-40mmHg
Echo 01/01/18: EF 45%
Echo 10/17/19: EF 30-35% with global hypokinesis
Echo 12/14/20: EF 50-55%
Echo 12/16/22: EF 50%, mod MR, mod TR with PAP 52 mmHg
Echo 03/06/24: EF 25 to 30% visually, 32% by Rachel's method, endocardial definition is limited, but in some views apex, distal septum appear hypokinetic, mild concentric LVH, moderate to severe MR, no aortic regurgitation, moderate TR with PAP 46
mmHg
Plan:
-Patient had attempted TAMIE/CV 03/12/24 for persistent Afib x16 months, but there was evidence of RALF thrombus so CV was cancelled. Talked with patient in room upon her return from laboratory engineer holding area. Patient is obviously disappointed. Explained
plan for ongoing Heparin to therapeutic warfarin bridging. Patient expressed disappointment that at one point during her hospitalization her INR was too high and procedures were delayed and now INR is low and she needs to be bridged back to an INR
of greater than 2. [facility]R was 2.11 [facility], but prior to admission INRs had been subtherapeutic at times. Patient is not a candidate for DOAC due to h/o positive for anticardiolipin antibody IgM per input from Heme/Onc this admission.
-Cont higher dose of amiodarone 200 mg daily, dose increased from outpatient dose this admission.
-Will plan on generator change for Uplike ICD 03/13/24
-Weight is down 2-3 lbs this admission with Lasix 40 mg IV BID. Transitioned back to outpatient dose of Lasix 80 mg PO daily. LE edema is improved.
-EF down to 25% by echo 03/06/24. EF has been up and down over the years as noted above. Cardiac cath 03/11/24 showed nonobstructive CAD.
-Patient changed from outpatient dose of atenolol to Coreg 3.125 mg BID. Patient was previously intolerant to Toprol XL.
-Patient changed from outpatient dose of losartan to Entresto 24/26 mg BID. Entresto on hold due to SANCHEZ, will resume 03/13/24.
-Patient started on spironolactone 25 mg daily 03/06/24. Spironolactone on hold due to SANCHEZ, will resume 03/13/24.
-TSH low at less than 0.02, but free T4 is normal at 2.14.
HPI: Patient was seen for a regularly scheduled echo and office visit today and was noted to have CM and acute HF, she was referred to [facility] and cardiology is now consulted. Patient has a h/o CM as far back as 2007, she had cardiac cath at that time
and she had a 40% proximal LAD lesion, but no other significantly obstructive CAD. Patient then had cardiac arrest in 02/2009 and had an ICD placed at that time. Patient found to have Afib on device check and also has a h/o ICD shocks for unclear
reasons. She is chronically on amiodarone 50 mg daily and warfarin. Patient has been taking warfarin since the PE in [address] Starr at that time and tested positive for anticardiolipin IgM antibody. Patient has had EF up and down since
then. Patient has not wanted to switch from atenolol to Coreg or Toprol XL in the past. Patient has been agreeable to losartan though. Patient appeared to be in acute HF in the office today and on echo her EF was down to 25% visually. Patient was
referred to [facility].
Progress Note - Brazer Resistance
Subjective
Date of Service: March 12, 2024
She is disappointed
Objective
Labs:
03/10/24 07:05
03/12/24 06:35
Labs
Hgb 14.4 g/dL (12.0-16.0) 03/10/24 07:05
Hct 42.3 % (37.0-47.0) 03/10/24 07:05
Plt Count 179 10^3/uL (130-400) 03/10/24 07:05
PT 16.8 Sec (11.4-14.6) H 03/12/24 06:35
INR 1.38 03/12/24 06:35
APTT 44.0 Sec (23.4-35.0) H 03/12/24 10:01
Sodium 138 mmol/L (135-145) 03/12/24 06:35
Potassium 4.7 mmol/L (3.5-5.1) 03/12/24 06:35
BUN 22 mg/dl (7-17) H 03/12/24 06:35
Creatinine 0.9 mg/dL (0.6-1.0) 03/12/24 06:35
Glucose 84 mg/dl (70-99) 03/12/24 06:35
Vital Signs and I&O:
Vital Signs
Temp Pulse Resp BP Pulse Ox
97.7 F 138 18 123/89 98
03/12/24 11:30 03/12/24 11:30 03/12/24 11:30 03/12/24 11:30 03/12/24 11:30
Vital Signs
Temp Pulse Resp BP Pulse Ox
97.7 F 138 18 123/89 98
03/12/24 11:30 03/12/24 11:30 03/12/24 11:30 03/12/24 11:30 03/12/24 11:30
Intake & Output
03/10/24 03/11/24 03/12/24 03/13/24
06:59 06:59 06:59 06:59
Intake Total 720 / 720 216 / 216
Output Total 375 / 375 500 / 500
Balance 720 / 720 -159 / -159 -500 / -500
Physical Exam
Physical Exam
GEN: AAO x3
HEENT: EOMI, MMM
LUNGS: No audible wheeze
CV: Afib on tele
ABD: ND
EXT: +1 B/L LE edema
NEURO: Gross non-focal
SKIN: No rash
--- NOTE | 2024-03-12 15:16 | CM ---
Chart reviewed home no needs when stable.
Plan; Home no needs when stable.
--- NOTE | 2024-03-12 15:39 | W.PN.UPDATE ---
Update Note
Progress Note Update
Talked with patient's son, Dave, for 17:53 min about results of TAMIE/CV. Patient will need generator change in AM. Coumadin 5 mg tonight. Cont Heparin gtt, will need to be bridged.
[2024-03-12 17:53] LABS: APTT 99.1 Sec (23.4-35.0)
[2024-03-12] MEDS: COUMADIN 5 MG PO (18:07)
[2024-03-12] MEDS: ENTRESTO 24 MG/26 MG 1 TAB PO (20:19)
[2024-03-12] MEDS: HEPARIN 25000 UNITS/250 ML IV (22:47)
[2024-03-13] VITALS (7 sets, daily range): BP systolic 86–139; BP diastolic 49–82; BMI 24.8
[2024-03-13 00:19] LABS: APTT 53.2 Sec (23.4-35.0)
[2024-03-13 07:35] LABS: INR 1.49; PT 17.9 Sec (11.4-14.6)
[2024-03-13 07:37] LABS: APTT 98.4 Sec (23.4-35.0)
[2024-03-13 08:04] LABS: Blood Urea Nitrogen 21 mg/dl (7-17); Calcium 9.5 mg/dl (8.4-10.2); Carbon Dioxide 22 mmol/L (22-30); Chloride 106 mmol/L (98-107); Estimated Creatinine Clearance 31 ml/min; Glucose 90 mg/dl (70-99); Potassium 4.6 mmol/L (3.5-5.1); Sodium 137 mmol/L (135-145); eGFR 54.53
--- NOTE | 2024-03-13 08:28 | ITS.CL.ICD ---
Supervisor Filter Assembly - ICD
Implantable Cardioverter Defibrillator
Procedure Report:
ICD GENERATOR CHANGE REPORT
Date of Procedure: March 13, 2024
Primary frame welder cargo utility trailers: Dr Dave Tovar
PROCEDURES:
1. Removal of ICD Generator, 2. ICD Implant
INDICATION FOR PROCEDURE:
1. ICD at [employer]
2. CARDIOMYOPATHY
Initial indication for implant is primary prevention
CHF Class 3
Duration of HF > 5 years despite guideline directed medical therapy at maximally tolerated doses
Life expectancy > 1 yr
'Time-out' was called and confirmed. The patient was prepped and draped in sterile fashion. Lidocaine with epi was used for local anesthesia. An incision was made along the previous incision and the device and leads were carefully dissected from
the pocket. Hemostasis was obtained with electrocautery. The leads were from the device header and tested using an external analyzer. The pocket was liberally irrigated with antibiotic solution. Once testing (see below) showed adequate
and stable function, the leads were connected to the generator header and the leads and generator were placed within the pocket. The pocket was closed in the typical fashion
She has antiphospholipid antibody and has had venous thromboembolic events to include DVT as well as PE. During this hospitalization she has been on heparin bridge to warfarin. There is significant concern for device wound bleeding and therefore
antibiotic pouch placed.
EXISTING ICD [employer]
IMPLANTED ICD: [employer] D121
EXISTING LEADS:
RA: Guidant [id number]
RV: Guidant [id number]
DEVICE TESTING:
Sensing: RA atrial fibrillation RV 8.3 mV,
Capture: RA atrial fibrillation, RV 2.6 V@ 0.5 ms
Ohms: RA 677, RV 406
FINAL PROGRAMMING:
Trevor Pacing: DDD 50-130 ppm
Tachy parameters:
VF: 200 bpm, ATP while charging, Shock
CONCLUSIONS:
1. Explant of ICD at [employer]
2. Successful implant ICD generator.
3. Normal function of ICD and leads at implant testing.
RECOMMENDATIONS:
1. Observation and consideration for discharge home later today.
2. In-Office wound check in 7 - 10 days.
3. Resume IV heparin without a bolus in 6-8 hrs and continue heparin bridge to warfarin, goal INR between 2 and 3
Copy to: Dr Dave Tovar
--- NOTE | 2024-03-13 08:45 | PTCARENOTE ---
Pt returned from cardiac medical laboratory technician, BP 86/58. Asymptomatic, pt laid flat in bed. Left chest well pressure dressing intact, +cms to left hand. For post procedure CXR, awaiting transport.
--- NOTE | 2024-03-13 10:30 | W.HF.CON ---
Heart Failure
- LV Function
Left ventricular function study result: LV Ejection fraction </= 35%
Ejection Fraction Percentage: 25-32
- ARNI
Patient already on ARNI: Yes
- ACEI/ARB
Patient already on ACEI/ARB: No
Heart Failure ACEI/ARB Not Indicated: Patient ordered/on ARNI
- Beta Amy
Patient already on Evidence Based Beta Amy: Yes
- Mineralocorticord Receptor Antagonist
Patient already on MRA: Yes
- SGLT-2 Inhibitor
Patient already on SGLT-2 Inhibitor: No
Heart Failure SGLT-2 Inhibitor Contraindication: Patient Refusal
- Afib Anticoagulation
Patient already on Anticoagulation for Afib: Yes
- NYHA CHF Classification
NYHA CHF Classification Level: Class III - Symptoms w/ min exertion, interferes w/ nml daily activity
- ACC/AHA Stage
ACC/AHA Stage: Stage C: Symptomatic Heart Failure
[2024-03-13] MEDS: LIPITOR 10 MG PO (11:34)
[2024-03-13] MEDS: VITAMIN D3 (cholecalciferol) 25 MCG PO (11:34)
[2024-03-13] MEDS: ENTRESTO 24 MG/26 MG 1 TAB PO ×2 (11:34→19:58)
[2024-03-13] MEDS: PACERONE 200 MG PO (11:34)
[2024-03-13] MEDS: B COMPLEX w/VITAMIN C 1 CAPLET PO (11:34)
[2024-03-13] MEDS: ALDACTONE 25 MG PO (11:36)
[2024-03-13] MEDS: TYLENOL 650 MG PO (11:36)
[2024-03-13] MEDS: COREG PO (12:45)
--- NOTE | 2024-03-13 13:41 | W.PN.HOSP.TC ---
Today's Communication/Plan
-
monitor vitals
see plan
cw Coumadin; INR daily
hep gtt per cardiology
Assessment / Plan
Assessment / Plan
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
#Dilated nonischemic cardiomyopathy
#Valvular disease with moderate to severe mitral regurgitation and moderate tricuspid regurgitation
Status post 40 mg IV Lasix twice daily and now transition to 80 mg p.o. Lasix. restart when ok with cardiology
Strict I's and O's with daily weights.
Start patient on goal-directed medical therapy per cardiology at sensitive to multiple medications
Started on Entresto and Aldactone and low-dose carvedilol. Due to hypotension Entresto and Aldactone was held overnight.
s/p cardiac cath nonobstructive coronary artery disease. Mildly elevated left ventricular filling pressure. Dilated nonischemic cardiomyopathy with a EF of 25-30%. 2+ mitral regurgitation.
Monitor Cr as on multiple new meds and s/p IV diuresis
Now on 80mg po lasix. Held for now
Aldactone held too
restart GDMT as Cr continue to improve and as BP allows.
Cardiology consultation
#Left atrial appendage thrombus
DCCV not performed
Continue with hep gtt; coumadin; need bridge. check INR daily
#SANCHEZ likely multifactorial due to multiple meds and IV diuresis
Lasix, held; cw coreg,entresto,aldactone
trend cr
Cr improved.
#Ventricular tachycardia status post ICD implantation
Amiodarone dose increased to 200 mg daily
Monitor on telemetry. Monitor electrolytes
s/p ICD generator change 03/13 EP/Cards.
#Paroxysmal atrial fibrillation now persistent
#Chronic coagulopathy with Coumadin
INR 1.3 Patient started on heparin infusion.
Continue amiodarone
Hyperlipidemia
Continue low-dose Lipitor
History of PE
History of DVT
History of antiphospholipid antibody syndrome
Start patient on heparin infusion. need comadin bridging
Oncology correspondence noted-recommend to continue Coumadin
Hypokalemia
replete/monitor.
DVT ppx-hep gtt
Full code
General: Well Developed and No Apparent Distress
HEENT: Normocephalic, Atraumatic and Moist Mucous Membranes
CVS: left chest wall bandage
GI: Soft and Nondistended; Negative Organomegaly
Musculoskeletal: No Clubbing, No Cyanosis, Edema, Right Lower Extrem and Edema, Left Lower Extrem
Neuro: Awake, AO x 3, No Motor Deficits and Nonfocal/Grossly Intact
Psych: Calm
Anticipated Discharge: > 48 hours
Subjective/Interval History
-
Date of Service: March 13, 2024
denies pain
Objective Data
-
Labs:
Laboratory Results
03/13/24
06:29
PT 17.9 H
INR 1.49
APTT 98.4 H
Sodium 137
Potassium 4.6
Chloride 106
Carbon Dioxide 22
BUN 21 H
Creatinine 1.0
Glucose 90
Calcium 9.5
Vital Signs:
Vital Signs
Temp Pulse Resp BP Pulse Ox
97.3 F 95 17 139/70 97
03/13/24 11:29 03/13/24 11:29 03/13/24 11:29 03/13/24 11:29 03/13/24 11:29
I&O
03/12/24 03/13/24 03/14/24
06:59 06:59 06:59
Intake Total
Output Total 500 / 500
Balance -500 / -500
[2024-03-13] MEDS: ANCEF 5 IV ×2 (14:22→21:17)
--- NOTE | 2024-03-13 14:48 | CM ---
Home when stable.
Plan; Home when stable.
[2024-03-13] MEDS: HEPARIN 25000 UNITS/250 ML IV (16:25)
[2024-03-13] MEDS: COUMADIN 2.5 MG PO (17:44)
[2024-03-13] MEDS: COREG 3.125 MG PO (19:58)
[2024-03-14 00:06] LABS: APTT 100.1 Sec (23.4-35.0)
[2024-03-14 03:21] VITALS: BP 91/60
[2024-03-14 06:00] VITALS: BMI 24.9
[2024-03-14 06:16] LABS: % Basophils 1.2 % (0-2); % Eosinophils 1.8 % (0-6); % Immature Granulocytes 0.2 % (0-0.5); % Lymphocytes 22.7 % (20.5-51.1); % Monocytes 13.2 % (1.7-9.3); % Neutrophils 60.9 % (42.2-75.2); Absolute Basophils 0.1 10^3/uL (0-0.2); Absolute Eosinophils 0.1 10^3/uL (0-0.7); Absolute Lymphocytes 1.2 10^3/uL (1.2-3.4); Absolute Monocytes 0.7 10^3/uL (0.1-0.6); Absolute Neutrophils 3.1 10^3/uL (1.4-6.5); Hematocrit 41.4 % (37.0-47.0); Hemoglobin 14.2 g/dL (12.0-16.0); Mean Corp Hgb Conc. 34.3 g/dL (33.0-37.0); Mean Corpuscular Volume 87.3 fL (81.0-99.0); Mean Platelet Volume 10.8 fL (7.4-10.4); Nucleated Red Blood Cells % 0 %; Platelet Count 144 10^3/uL (130-400); Red Blood Cell Count 4.74 10^6/uL (4.20-5.40); Red Cell Dist. Width 15.4 % (11.5-14.5); White Blood Cell Count 5.1 10^3/uL (4.8-10.8)
[2024-03-14 06:30] LABS: INR 2.01
[2024-03-14 06:33] LABS: APTT 135.2 Sec (23.4-35.0)
[2024-03-14 06:49] LABS: Blood Urea Nitrogen 22 mg/dl (7-17); Calcium 9.3 mg/dl (8.4-10.2); Carbon Dioxide 23 mmol/L (22-30); Chloride 107 mmol/L (98-107); Estimated Creatinine Clearance 31 ml/min; Glucose 93 mg/dl (70-99); Potassium 5.1 mmol/L (3.5-5.1); Sodium 137 mmol/L (135-145); eGFR 54.53
[2024-03-14 07:53] VITALS: BP 99/66
[2024-03-14] MEDS: COREG PO (08:29)
[2024-03-14] MEDS: ENTRESTO 24 MG/26 MG PO (08:30)
[2024-03-14] MEDS: ALDACTONE 25 MG PO (08:37)
[2024-03-14] MEDS: B COMPLEX w/VITAMIN C 1 CAPLET PO (08:37)
[2024-03-14] MEDS: LIPITOR 10 MG PO (08:38)
[2024-03-14] MEDS: VITAMIN D3 (cholecalciferol) 25 MCG PO (08:38)
[2024-03-14] MEDS: PACERONE 200 MG PO (08:38)
--- NOTE | 2024-03-14 08:51 | W.PN.CARDCBS ---
Addendum entered and electronically signed by Jeannine Tovar MD 03/14/24 10:38:
I saw and examined the patient.
The Loom Stop Checker's note was reviewed and I agree with the note.
Comment: Exam stable. Patient stable for discharge.
-Complex situation with decreased ejection fraction in the setting of persistent atrial fibrillation and likely left atrial appendage thrombus. Heart rates are controlled in atrial fibrillation. I stressed the importance of frequent INR checks and
we have notified our anticoagulation nursing. At least every 2 week checks. Currently INR is acceptable goal between 2 and 3. Would consider after 2 to 3 months of therapeutic INRs relook TAMIE with eye towards cardioversion and yarsani of
sinus rhythm. Continue amiodarone 200 mg daily.
-Heart failure is fairly stable. Stressed compliance with sodium and fluid restricted diet. She previously declined guideline directed medical therapy given 'intolerances '. She is tolerating medications well as inpatient and will continue. She
will have blood work done in 1 week. I have recommended VNA.
-She has history of ventricular tachycardia for which she is on amiodarone she is on dual purpose with amiodarone also for atrial arrhythmias. Continue. Generator of biventricular ICD was end-of-life with battery and replaced during this
admission. Site stable. Await wound check.
-Cardiac catheterization stable.
Original Note:
Today's Communication / Plan
-
INR therapeutic today
VN
INRs weekly for the next 4-6 weeks
D/C to home today
Impression / Plan
-
PCP: Unknown
Cardiology: Dr. Jeannine Tovar
Heme/Onc: Dr. Starr
Impression:
Acute on chronic HFrEF
Recurrent cardiomyopathy, EF 32% by Rachel's method and 25-30% visually on echo 03/06/24
EF previously as low as 30% by echo 10/17/19 and then improved to 50% by echo 12/16/22
Persistent Afib
Chronic amiodarone therapy
Chronic warfarin OAC managed by [facility]
Nonobstructive CAD including 40% proximal LAD lesion by cath 07/07/08
h/o cardiac arrest 02/2009
s/p [employer] ICD, s/p generator change 05/30/13, s/p generator change 03/13/24
h/o NSVT
Anti-cardiolipin antibody syndrome
positive for anti-cardiolipin antibody IgM
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
Echo 02/2009: EF 35-40%
Echo 05/23/13: EF 40%
Echo 01/28/15: EF 40-45%
Echo 06/02/15: EF 55-60%
Echo 11/23/15: EF 55-60%
Echo 03/2017: EF 50-55%, mod MR, PASP 35-40mmHg
Echo 01/01/18: EF 45%
Echo 10/17/19: EF 30-35% with global hypokinesis
Echo 12/14/20: EF 50-55%
Echo 12/16/22: EF 50%, mod MR, mod TR with PAP 52 mmHg
Echo 03/06/24: EF 25 to 30% visually, 32% by Rachel's method, endocardial definition is limited, but in some views apex, distal septum appear hypokinetic, mild concentric LVH, moderate to severe MR, no aortic regurgitation, moderate TR with PAP 46
mmHg
Plan:
-Generator changed for [employer] [place] ICD 03/13/24
-INR therapeutic at 2.01 on 03/14/24. Heparin gtt stopped. INR goal is 2-3.
-Talked with patient about tighter INR management over the next 4-6 weeks. Goal is to maintain a therapeutic INR while patient resolves RALF thrombus seen on TAMIE 03/12/24. Can plan on a recheck in 4-6 weeks so long as she stays therapeutic. Goal is
still for yarsani of SR.
-Patient is not a candidate for DOAC due to h/o positive for anticardiolipin antibody IgM per input from Heme/Onc this admission.
-Cont higher dose of amiodarone 200 mg daily, dose increased from outpatient dose this admission.
-Recurrent CM on admission. Nonobstructive CAD by cath 03/11/24. GDMT uptitrated and again will focus on rhythm control of know persistent Afib.
-Weight is down 2-3 lbs this admission with Lasix 40 mg IV BID. Transitioned back to outpatient dose of Lasix 80 mg PO daily. LE edema is improved.
-Patient changed from outpatient dose of atenolol to Coreg 3.125 mg BID. Patient was previously intolerant to Toprol XL.
-Patient changed from outpatient dose of losartan to Entresto 24/ mg BID. Entresto on hold due to SANCHEZ, will resume 03/13/24.
-Patient started on spironolactone 25 mg daily 03/06/24. Spironolactone briefly held due to SANCHZE, but resumed 03/13/24.
-TSH low at less than 0.02, but free T4 is normal at 2.14
-D/C to home 03/14/24 and TT to to help coordinate VN where she lives in [place].
HPI: Patient was seen for a regularly scheduled echo and office visit today and was noted to have CM and acute HF, she was referred to [facility] and cardiology is now consulted. Patient has a h/o CM as far back as 2007, she had cardiac cath at that time
and she had a 40% proximal LAD lesion, but no other significantly obstructive CAD. Patient then had cardiac arrest in 02/2009 and had an ICD placed at that time. Patient found to have Afib on device check and also has a h/o ICD shocks for unclear
reasons. She is chronically on amiodarone 50 mg daily and warfarin. Patient has been taking warfarin since the PE in [address] Starr at that time and tested positive for anticardiolipin IgM antibody. Patient has had EF up and down since
then. Patient has not wanted to switch from atenolol to Coreg or Toprol XL in the past. Patient has been agreeable to losartan though. Patient appeared to be in acute HF in the office today and on echo her EF was down to 25% visually. Patient was
referred to [facility].
Progress Note - Knowledge Engineer
Subjective
Date of Service: March 14, 2024
She is delighted to hear that she her INR is 2.01
Objective
Labs:
03/14/24 05:47
03/14/24 05:47
Labs
Hgb 14.2 g/dL (12.0-16.0) 03/14/24 05:47
Hct 41.4 % (37.0-47.0) 03/14/24 05:47
Plt Count 144 10^3/uL (130-400) 03/14/24 05:47
PT 23.0 Sec (11.4-14.6) H 03/14/24 05:47
INR 2.01 03/14/24 05:47
APTT 135.2 Sec (23.4-35.0) H 03/14/24 05:47
Sodium 137 mmol/L (135-145) 03/14/24 05:47
Potassium 5.1 mmol/L (3.5-5.1) 03/14/24 05:47
BUN 22 mg/dl (7-17) H 03/14/24 05:47
Creatinine 1.0 mg/dL (0.6-1.0) 03/14/24 05:47
Glucose 93 mg/dl (70-99) 03/14/24 05:47
Vital Signs and I&O:
Vital Signs
Temp Pulse Resp BP Pulse Ox
97.1 F 86 18 99/66 96
03/14/24 07:53 03/14/24 07:53 03/14/24 07:53 03/14/24 08:30 03/14/24 07:53
Vital Signs
Temp Pulse Resp BP Pulse Ox
97.1 F 86 18 99/66 96
03/14/24 07:53 03/14/24 07:53 03/14/24 07:53 03/14/24 08:30 03/14/24 07:53
Intake & Output
03/12/24 03/13/24 03/14/24 03/15/24
06:59 06:59 06:59 06:59
Intake Total 82 / 82 480 / 480
Output Total 500 / 500
Balance -500 / -500 82 / 82 480 / 480
Physical Exam
Physical Exam
GEN: AAO x3
HEENT: EOMI, MMM
LUNGS: No audible wheeze
CV: Left ACW generator change site pressure dressing removed to reveal intact Aquacel dressing without drainage or hematoma. Afib on tele
ABD: ND
EXT: No edema
NEURO: Gross non-focal
SKIN: No rash
[2024-03-14 11:25] VITALS: BP 152/99
--- NOTE | 2024-03-14 12:16 | W.PN.HOSP.TC ---
Today's Communication/Plan
-
Monitor vital signs see plan
Discharge today
Continue with Lasix, Entresto, Amio
INR therapeutic, further INR cardiology will follow-up outpatient
Time of discharge 38 minutes
Assessment / Plan
Assessment / Plan
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
#Dilated nonischemic cardiomyopathy
#Valvular disease with moderate to severe mitral regurgitation and moderate tricuspid regurgitation
Status post 40 mg IV Lasix twice daily and now transition to 80 mg p.o. Lasix. restart
Strict I's and O's with daily weights.
Start patient on goal-directed medical therapy per cardiology at sensitive to multiple medications
Started on Entresto and Aldactone and low-dose carvedilol.
s/p cardiac cath nonobstructive coronary artery disease. Mildly elevated left ventricular filling pressure. Dilated nonischemic cardiomyopathy with a EF of 25-30%. 2+ mitral regurgitation.
Monitor Cr as on multiple new meds and s/p IV diuresis
Cardiology following
Generator of biventricular ICD was end-of-life with battery and replaced during this admission.
#Left atrial appendage thrombus
DCCV not performed
DC further heparin drip, INR now therapeutic, continue with Coumadin coumadin; cardiology will follow-up for further INR checks
#SANCHEZ likely multifactorial due to multiple meds and IV diuresis
Lasix,; cw coreg,entresto,aldactone
trend cr
Cr improved.
#Ventricular tachycardia status post ICD implantation
Amiodarone dose increased to 200 mg daily
Monitor on telemetry. Monitor electrolytes
s/p ICD generator change 03/13 EP/Cards.
#Paroxysmal atrial fibrillation now persistent
#Chronic coagulopathy with Coumadin
Continue amiodarone
Hyperlipidemia
Continue low-dose Lipitor
History of PE
History of DVT
History of antiphospholipid antibody syndrome
Start patient on heparin infusion. need comadin bridging
Oncology correspondence noted-recommend to continue Coumadin
Hypokalemia
replete/monitor.
DVT ppx-hep gtt
Full code
General: Well Developed and No Apparent Distress
HEENT: Normocephalic, Atraumatic and Moist Mucous Membranes
CVS: left chest wall bandage
GI: Soft and Nondistended; Negative Organomegaly
Musculoskeletal: No Clubbing, No Cyanosis, Edema, Right Lower Extrem and Edema, Left Lower Extrem
Neuro: Awake, AO x 3, No Motor Deficits and Nonfocal/Grossly Intact
Psych: Calm
Anticipated Discharge: Today
Subjective/Interval History
-
Date of Service: March 14, 2024
denies pain
Objective Data
-
Labs:
Laboratory Results
03/14/24
05:47
WBC 5.1
Hgb 14.2
Hct 41.4
Plt Count 144
PT 23.0 H
INR 2.01
APTT 135.2 H
Sodium 137
Potassium 5.1
Chloride 107
Carbon Dioxide 23
BUN 22 H
Creatinine 1.0
Glucose 93
Calcium 9.3
Vital Signs:
Vital Signs
Temp Pulse Resp BP Pulse Ox
98.0 F 80 18 152/99 95
03/14/24 11:25 03/14/24 11:25 03/14/24 11:25 03/14/24 11:25 03/14/24 11:25
I&O
03/13/24 03/14/24 03/15/24
06:59 06:59 06:59
Intake Total 82 / 82 480 / 480
Balance 82 / 82 480 / 480
--- NOTE | 2024-03-14 12:25 | W.DCSUMMARY ---
Discharge Summary
Discharge Data
Date of Admission: 03/06/24
Date of Discharge: 03/14/24
-
Pending Results: No
Hospital Course
88-year-old female with past medical history of CHF, ICD, atrial fibrillation, hyperlipidemia, PE, DVT, antiphospholipid antibody syndrome came to the hospital with acute on chronic congestive heart failure exacerbation. Initially patient was
started on IV Lasix which was later transitioned to oral Lasix upon discharge. Patient was seen by cardiology throughout hospitalization. She underwent cardiac catheterization which did not show any significant obstructive coronary artery disease.
It did show elevated left ventricular filling pressures. Patient was also started on Entresto and Aldactone along with low-dose Coreg. For her atrial fibrillation initially plan was for cardioversion however during TAMIE patient was found to have
left atrial appendage thrombus so cardioversion was not performed. Patient was initially kept on heparin drip while she was on Coumadin as a bridge. Her discharge INR was greater than 2. On discharge cardiology will be monitoring her INR. She
also developed acute kidney injury which was likely thought was secondary to IV diuresis. Her kidney functions continue to improve prior to discharge. For her ICD it appeared that ICD battery was at the end so it was replaced during this
admission. Once patient symptoms continue to improve, she was then discharged home with instructions to follow-up with all her physicians outpatient.
Discharge Plan
-
Patient Disposition: Home with Home Care
Discharge Diagnosis/Procedures: Acute on chronic systolic
Congestive heart failure exacerbation
Valvular insufficiency
Left atrial appendage thrombus
Acute kidney injury
Persistent atrial fibrillation
cardiac catheterization (03/11), pacemaker generator change (03/13), left atrial appendage thrombus by TAMIE (transesophageal echo) 03/12/24
Condition: Fair
Diet: 2 Gram Sodium and Restrict fluids to 48 oz
Activity: Other activity
Driving Restrictions: As prior to admission
Bathing Restrictions: OK to Shower
Blood Work: -INR check once a week for the next 4-6 weeks to maintain INR goal of 2-3.
Other Services: VN
Specialty Instructions: Weigh Daily- Call MD for wt gain/loss 3 lbs overnight/5 lbs in 1 week
Instructions: *KENNY Heart Failure Instructions
Stand Alone Forms: DC Instructions- Cath/EP Lab, DC Inst - Implanted Device
Referrals:
[facility] [Provider Group] - 03/20/24 1:20 pm (Post device incision check appointment)
Sruthi Chicas PA-C [Specified Professional Personl] - 04/03/24 12:40 pm (Cardiology followup appointment)
Dilcia Talley DO [Non-Admitting Privileges] - in less than 1 week
Additional Discharge Medication Instructions: -STOP taking atenolol, it has been replaced with Coreg (carvedilol) 3.125 mg twice a day
-STOP taking losartan, it has been replaced with Entresto 24/26 mg twice a day
-Start taking spironolactone 25 mg once a day
-Increase amiodarone to 200 mg (one 200 mg tablet or two 100 mg tablets) once a day
Prescriptions:
New
amiodarone [Pacerone] 200 mg Tablet
200 mg PO DAILY Qty: 30 11RF
spironolactone 25 mg Tablet
25 mg PO DAILY Qty: 30 11RF
carvedilol 3.125 mg Tablet
3.125 mg PO BID Qty: 60 11RF
Entresto 24-26 mg Tablet
1 tab PO BID Qty: 60 11RF
Continued
cholecalciferol (vitamin D3) 1,000 UNITS tablet
1,000 units PO DAILY
biotin 10,000 MCG capsule
10,000 mcg PO DAILY
vitamin B complex Tablet
1 tab PO DAILY
warfarin [Jantoven] 5 MG tablet
2.5 mg PO QPM
furosemide 20 MG tablet
80 mg PO DAILY
atorvastatin [Lipitor] 10 mg Tablet
10 mg PO DAILY
Discontinued
atenolol 50 MG tablet
50 mg PO DAILY
losartan 25 MG tablet
25 mg PO DAILY
amiodarone 100 mg Tablet
50 mg PO DAILY
Patient Comments:
100mg tablets, cutting in half
Discharge Orders:
Discharge Patient (As Directed); Ordered 03/14/24
Ordered By: Андрей Coronel
Discharge Date and Time
Discharge Date/Time: 03/14/24 16:29
Print Language: MACEDONIAN
--- NOTE | 2024-03-14 12:58 | CM ---
Addendum entered by Rena Lcuiano 03/14/24 14:17:
Per patient pharmacy coupon does not work with her insurance, cost of Entresto is $47 per month anabel is aware.
Original Note:
forensic manager reviewed patient's chart and met with patient and spoke with cardiology who recommended visiting nurses. forensic manager reviewed visiting nurse options with patient and patient has selected [facility] referral sent to [facility]. Patient for
possible discharge on Entresto and coupon for Entresto provided to patient. Patient to return [facility] today.
[facility]
[phone]
[2024-03-14 14:50] VITALS: BP 96/65
== END 2024-03-14 16:29 | disposition home health service (06) | DRG 245 ==
LOC: 4 WEST ACU 14:54
PROVIDERS: Internal Medicine; Internal Medicine Cardiovascular Disease; Internal Medicine Interventional Cardiology; Nurse Practitioner; Physician Assistant; ADMITTING PHYSICIAN Hospitalist; ATTENDING PHYSICIAN Internal Medicine; EMERGENCY PHYSICIAN Emergency Medicine; OTHER PHYSICIAN Internal Medicine Hematology & Oncology
PROC: 4A023N8 Measurement of Cardiac Sampling and Pressure, Bilateral, Percutaneous Approach (ICD-10-PCS; 2024-03-11)
PROC: 4A033BC Measurement of Arterial Pressure, Coronary, Percutaneous Approach (ICD-10-PCS; 2024-03-11)
PROC: B2151ZZ Fluoroscopy of Left Heart using Low Osmolar Contrast (ICD-10-PCS; 2024-03-11)
PROC: B2111ZZ Fluoroscopy of Multiple Coronary Arteries using Low Osmolar Contrast (ICD-10-PCS; 2024-03-11)
PROC: B24BZZ4 Ultrasonography of Heart with Aorta, Transesophageal (ICD-10-PCS; 2024-03-12)
PROC: 0JH608Z Insertion of Defibrillator Generator into Chest Subcutaneous Tissue and Fascia, Open Approach (ICD-10-PCS; 2024-03-13)
PROC: 0JPT0PZ Removal of Cardiac Rhythm Related Device from Trunk Subcutaneous Tissue and Fascia, Open Approach (ICD-10-PCS; 2024-03-13)
DX: I11.0 Hypertensive heart disease with heart failure (principal); I50.43 Acute on chronic combined systolic (congestive) and diastolic (congestive) heart failure; I48.19 Other persistent atrial fibrillation; D68.61 Antiphospholipid syndrome; D68.9 Coagulation defect, unspecified; N17.9 Acute kidney failure, unspecified; I47.20 Ventricular tachycardia, unspecified; I51.3 Intracardiac thrombosis, not elsewhere classified; E78.5 Hyperlipidemia, unspecified; I25.10 Atherosclerotic heart disease of native coronary artery without angina pectoris; I42.0 Dilated cardiomyopathy; I42.8 Other cardiomyopathies; E87.6 Hypokalemia; I08.1 Rheumatic disorders of both mitral and tricuspid valves; Z53.09 Procedure and treatment not carried out because of other contraindication; I25.2 Old myocardial infarction; Z95.810 Presence of automatic (implantable) cardiac defibrillator; Z86.74 Personal history of sudden cardiac arrest; Z79.01 Long term (current) use of anticoagulants; Z86.711 Personal history of pulmonary embolism; Z88.1 Allergy status to other antibiotic agents; Z88.5 Allergy status to narcotic agent; Z88.8 Allergy status to other drugs, medicaments and biological substances; Z86.718 Personal history of other venous thrombosis and embolism
CPT/HCPCS: 33263; 71045; 71046; 80048; 80053; 80061; 83880; 84439; 84443; 84484; 85025; 85027; 85347; 85610; 85730; 93005; 93306; 93312; 93320; 93325; 93460; 93571; 99284; C1721; C1769; C1894; Q9967